=== PATIENT | female | born 1975 | race Asian ===

== ENCOUNTER 2017-07-15 15:24 | Inpatient (IN) | payer OTHER ==
[2017-07-15 15:46] VITALS: BMI 35.3
[2017-07-15] MEDS ORDERED: SODIUM CHLORIDE 1,000 ML IV STA (15:46)
--- NOTE | 2017-07-15 15:47 | PDOC ---
Rapid Medical Evaluation Time Seen by Provider: 07/15/17 15:42 Medical Evaluation: Allergies Allergy/AdvReac Type Severity Reaction Status Date / Time No Known Allergies Allergy Verified 08/06/15 14:38 07/15/17 15:42 I have performed a brief in person evaluation of this patient. The patient presents with chief complaint of : vaginal bleeding for 3 weeks history of fibroids, with dizzyness. 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 lmp 3 months ago, denies , using one pad an hour to half hour. history of blood transfusion in the past. Pertinent PE findings: 152/113 HR 100 pulse ox 100 I have ordered the following: urine preg labs, The patient will proceed to the ER for further evaluation.
[2017-07-15 16:08] LABS: BASOPHIL 1.1 % (0-2.0); EOSINOPHIL 2.6 % (0-4.5); MCHC 29.5 g/dl (32.0-36.0); MEAN CELL VOLUME 61.3 fl (80-96); MEAN PLT VOLUME 8.8 fl (7.5-11.1); NEUTROPHILS 62.3 % (42.8-82.8); PLATELET COUNT 297 K/MM3 (134-434); WHITE BLOOD COUNT 5.7 K/mm3 (4.0-10.0)
[2017-07-15 16:17] LABS: MCH 18.1 pg (25.7-33.7)
[2017-07-15 16:40] LABS: ALBUMIN 3.4 g/dl (3.4-5.0); ALK PHOS 72 U/L (45-117); ANION GAP 9 (8-16); BILIRUBIN,TOTAL 0.3 mg/dL (0.2-1.0); CALCIUM 8.5 mg/dL (8.5-10.1); CO2 27 mmol/L (21-32); CREATININE 0.7 mg/dL (0.55-1.02); GLUCOSE,RANDOM 95 mg/dL (74-106); SGOT/AST 13 U/L (15-37); SGPT/ALT 20 U/L (12-78); TOT PROT 7.2 g/dl (6.4-8.2)
--- NOTE | 2017-07-15 16:59 | PDOC ---
History of Present Illness - General Chief Complaint: Vaginal Bleeding Stated Complaint: VAGINAL BLEEDING, DIZZINESS Time Seen by Provider: 07/15/17 15:42 History Source: Patient - History of Present Illness Timing/Duration: reports: constant Past History - Past Medical History Allergies/Adverse Reactions: Allergies Allergy/AdvReac Type Severity Reaction Status Date / Time No Known Allergies Allergy Verified 07/15/17 15:43 Home Medications: Ambulatory Orders Ferrous Sulfate [Feosol] 325 mg PO DAILY #0 ud 08/07/15 Anemia: Yes Asthma: Yes Cancer: No Cardiac Disorders: No CVA: No COPD: No CHF: No Dementia: No Diabetes: No GI Disorders: No Disorders: No HTN: No Hypercholesterolemia: No Liver Disease: No Seizures: No Thyroid Disease: Yes - Surgical History Abdominal Surgery: No Appendectomy: No Cardiac Surgery: No Cholecystectomy: No Lung Surgery: No Neurologic Surgery: No Orthopedic Surgery: No - Suicide/Smoking/Psychosocial Hx Smoking Status: No Smoking History: Never smoked Have you smoked in the past 12 months: No Number of Cigarettes Smoked Daily: 0 Hx Alcohol Use: No Drug/Substance Use Hx: No Hx Substance Use Treatment: No Review of Systems - Review of Systems Constitutional: No: Chills, Fever ABD/GI: No: Nausea, Vomiting, Abdominal cramping *Physical Exam - Vital Signs Last Vital Signs Temp Pulse Resp BP Pulse Ox 98 F 106 H 17 152/113 100 07/15/17 15:43 07/15/17 15:43 07/15/17 15:43 07/15/17 15:43 07/15/17 15:43 - Physical Exam General Appearance: Yes: Appropriately Dressed. No: Apparent Distress HEENT: positive: Normal Voice Neck: positive: Supple Respiratory/Chest: negative: Respiratory Distress Gastrointestinal/Abdominal: positive: Soft. negative: Tender Integumentary: positive: Dry, Warm Neurologic: positive: Fully Oriented, Alert, Normal Mood/Affect ED Treatment Course - LABORATORY CBC & Chemistry Diagram: 07/15/17 16:04 07/15/17 16:04 - ADDITIONAL ORDERS Additional order review: 07/15/17 16:04 RBC 3.12 L MCV 61.3 L MCHC 29.5 L RDW 24.0 H D MPV 8.8 Neutrophils % 62.3 Lymphocytes % 26.7 Monocytes % 7.3 Eosinophils % 2.6 Basophils % 1.1 Medical Decision Making - Medical Decision Making 07/15/17 16:58 42-year-old female, history of fibroids, anemia status post transfusion in the past here with abnormal vaginal bleeding. Patient states she gets monthly periods and that she got her period 3 weeks ago, which usually lasts for 1 week , but for the past 3 weeks has continued to bleed on and off. States right now bleeding is mild. Now feeling weak, dizzy and short of breath. No syncope. No abdominal pain. 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 See exam Menorrhagia H/o fibroids and anemia w/ transfusions in past though only cysts on US today, no visualized fibroids Non-compliant w/ iron Mildly tachy but well breanne in ED Labs done at triage w/ HGB of 5! -Will admit and transfuse at this time 07/15/17 18:[address] Rosas and patient admitted to observation for blood transfusion *DC/Admit/Observation/Transfer Diagnosis at time of Disposition: Symptomatic anemia, Vaginal bleeding - Discharge Dispostion Condition at time of disposition: Fair Admit: Yes - Referrals - Patient Instructions - Post Discharge Activity
[2017-07-15 17:13] LABS: INR 1.08 (0.82-1.09); PROTHROMBIN TIME (PATIENT) 12.2 SEC (9.98-11.88)
[2017-07-15 18:16] LABS: URINE APPEARANCE SLCLOUDY; URINE BILIRUBIN NEGATIVE (NEGATIVE); URINE BLOOD 3+ (NEGATIVE); URINE COLOR YELLOW; URINE GLUCOSE (UA) NEGATIVE (NEGATIVE); URINE KETONE NEGATIVE (NEGATIVE); URINE NITRITE NEGATIVE (NEGATIVE); URINE UROBILINOGEN NEGATIVE mg/dL (0.2-1.0)
[2017-07-15 18:21] LABS: URINE PROTEIN 1+ (NEGATIVE)
[2017-07-15 20:48] LABS: URINE MUCUS FEW; URINE RBC 664 /hpf (0-3); URINE WBC 7 /hpf (3-5)
[2017-07-15 21:31] LABS: BASOPHIL 1.3 % (0-2.0); EOSINOPHIL 3.3 % (0-4.5); MCHC 28.9 g/dl (32.0-36.0); MEAN PLT VOLUME 8.8 fl (7.5-11.1); NEUTROPHILS 58.2 % (42.8-82.8); PLATELET COUNT 113 K/MM3 (134-434); RDW 23.4 % (11.6-15.6); WHITE BLOOD COUNT 4.9 K/mm3 (4.0-10.0)
[2017-07-15 21:35] LABS: MCH 17.9 pg (25.7-33.7)
[2017-07-15 21:38] LABS: HYPOCHROMIA 3+
[2017-07-15 21:39] LABS: ANISOCYTOSIS 3+; MACROCYTOSIS 1+; MICROCYTOSIS 2+; OVALOCYTE 2+
[2017-07-15 22:29] LABS: URINE LEUK ESTERASE Negative (NEGATIVE)
[2017-07-15] MEDS ORDERED: ACETAMINOPHEN 325 MG TABLET (FP) PO PRN (22:33)
[2017-07-16 08:33] LABS: MCH 20.8 pg (25.7-33.7); MCHC 31.5 g/dl (32.0-36.0); MEAN PLT VOLUME 8.7 fl (7.5-11.1); PLATELET COUNT 219 K/MM3 (134-434); RDW 27.1 % (11.6-15.6); WHITE BLOOD COUNT 5.5 K/mm3 (4.0-10.0)
--- NOTE | 2017-07-16 09:11 | HP ---
Admitting History and Physical - Primary Care Physician PCP: Amberly Escobar - Admission Chief Complaint: lightheadedess, weakness, vaginal bleeding History of Present Illness: long history of heavy periods, vaginal bleeding d+c in past x1 that woorked for her for 2 years recently she has had menses for 3 weeks with clots and continuos spotting to the point where she felt weak and lightheaded and short of breath. does not have a regular medication technician has one child History Source: Patient Limitations to Obtaining History: No Limitations - Past Medical History Reproductive: Yes: Fibroids ...LMP: 07/01/17 ...: No Heme/Onc: Yes: Anemia (this is her fourth time admitted for blood transfusions) - Smoking History Smoking history: Never smoked Have you smoked in the past 12 months: No Aproximately how many cigarettes per day: 0 - Alcohol/Substance Use Hx Alcohol Use: No - Social History ADL: Independent History of Recent Travel: No Home Medications - Allergies Allergies/Adverse Reactions: Allergies Allergy/AdvReac Type Severity Reaction Status Date / Time No Known Allergies Allergy Verified 07/15/17 15:43 - Home Medications Home Medications: Ambulatory Orders Ferrous Sulfate [Feosol] 325 mg PO DAILY #0 ud 08/07/15 Family Disease History - Family Disease History Family History: Unremarkable Review of Systems - Review of Systems Constitutional: reports: Lethargy, Weakness Eyes: reports: No Symptoms HENT: reports: No Symptoms Neck: reports: No Symptoms Cardiovascular: reports: No Symptoms Respiratory: reports: Exercise Intolerance Gastrointestinal: reports: No Symptoms Genitourinary: reports: Vaginal Bleeding Breasts: reports: No Symptoms Reported Musculoskeletal: reports: No Symptoms Integumentary: reports: No Symptoms Endocrine: reports: No Symptoms Hematology/Lymphatic: reports: No Symptoms Psychiatric: reports: No Symptoms Physical Examination Vital Signs: Vital Signs Temperature 97.7 F 07/15/17 19:44 Pulse Rate 87 07/15/17 19:44 Respiratory Rate 20 07/15/17 19:44 Blood Pressure 103/51 07/15/17 19:44 O2 Sat by Pulse Oximetry (%) 97 07/15/17 21:00 Constitutional: Yes: Well Nourished, No Distress, Obese Eyes: Yes: Conjunctiva Clear HENT: Yes: Atraumatic Neck: Yes: Supple, Trachea Midline Cardiovascular: Yes: Regular Rate and Rhythm Respiratory: Yes: CTA Bilaterally Gastrointestinal: Yes: Normal Bowel Sounds, Soft Musculoskeletal: Yes: WNL Extremities: Yes: WNL Edema: No Peripheral Pulses WNL: Yes Integumentary: Yes: WNL Neurological: Yes: WNL Labs: CBC, BMP 07/16/17 07:58 07/15/17 16:04 Abnormal Lab Results 07/15/17 07/15/17 07/15/17 16:04 16:04 16:04 RBC 3.12 L Hgb 5.7 L* D Hct 19.1 L D MCV 61.3 L MCH 18.1 L MCHC 29.5 L RDW 24.0 H D Plt Count PT with INR 12.20 H BUN 6 L D AST 13 L D Urine Protein Urine Blood Crossmatch 07/15/17 07/15/17 07/15/17 17:44 18:50 18:50 RBC Hgb Hct MCV MCH MCHC RDW Plt Count PT with INR BUN AST Urine Protein 1+ H Urine Blood 3+ H Crossmatch See Detail See Detail 07/15/17 07/16/17 21:24 07:58 RBC 2.12 L D 3.38 L D Hgb 3.8 L* D 7.0 L D Hct 13.2 L 22.3 L D MCV 62.0 L 66.0 L D MCH 17.9 L 20.8 L MCHC 28.9 L 31.5 L RDW 23.4 H 27.1 H Plt Count 113 L D PT with INR BUN AST Urine Protein Urine Blood Crossmatch Imaging - Results Other: Report Reviewed (endometrial thickening, no fibroids noted) Problem List - Problems (1) Symptomatic anemia Code(s): D64.9 - ANEMIA, UNSPECIFIED (2) Vaginal bleeding Code(s): N93.9 - ABNORMAL UTERINE AND VAGINAL BLEEDING, UNSPECIFIED Assessment/Plan in view of continous bleeding transfuse additional 1 unit PBC privacy analyst evaluation for d+c, hysterectomy...in future
[2017-07-16] MEDS ORDERED: MIDAZOLAM HCL 2 MG/2 ML SINGLE DOSE VIAL ONE (15:49)
[2017-07-16] MEDS ORDERED: PROPOFOL 20 ML ONE (15:49)
[2017-07-16] MEDS ORDERED: DEXAMETHASONE SOD PHOSPHATE 4 MG/1 ML VIAL ONE (15:50)
[2017-07-16] MEDS ORDERED: LIDOCAINE HCL/PF 2% SDV 5ML VIAL ONE (15:50)
[2017-07-16] MEDS: FERROUS SO4 325 MG TABLET (FP) PO SCH (19:09)
[2017-07-17 08:18] LABS: BASOPHIL 0.3 % (0-2.0); EOSINOPHIL 0.1 % (0-4.5); MCH 21.8 pg (25.7-33.7); MCHC 31.8 g/dl (32.0-36.0); MEAN CELL VOLUME 68.4 fl (80-96); MEAN PLT VOLUME 8.6 fl (7.5-11.1); NEUTROPHILS 78.5 % (42.8-82.8); PLATELET COUNT 228 K/MM3 (134-434); RDW 26.5 % (11.6-15.6); WHITE BLOOD COUNT 9.2 K/mm3 (4.0-10.0)
--- NOTE | 2017-07-17 08:54 | DS ---
Physical Examination Vital Signs: Vital Signs Temperature 98 F 07/17/17 06:22 Pulse Rate 76 07/17/17 06:22 Respiratory Rate 20 07/17/17 06:22 Blood Pressure 115/69 07/17/17 06:22 O2 Sat by Pulse Oximetry (%) 96 07/17/17 01:00 Constitutional: Yes: Well Nourished, No Distress Eyes: Yes: Conjunctiva Clear HENT: Yes: Atraumatic Neck: Yes: Trachea Midline Cardiovascular: Yes: Regular Rate and Rhythm Respiratory: Yes: CTA Bilaterally Gastrointestinal: Yes: Normal Bowel Sounds, Soft. No: Tenderness, Tenderness, Rebound Musculoskeletal: Yes: WNL Edema: No Labs: CBC, BMP 07/17/17 07:25 07/15/17 16:04 Discharge Summary Reason For Visit: SECONDARY ANEMIA Current Active Problems Symptomatic anemia (Acute) Vaginal bleeding (Acute) Hospital Course: admitted for three weeks of vaginal bleeding and symptomatic anemia transfused 3 untis prbc seen by rn gyn and underwent d+c feels much better,h/h is up medically stable to tn home with close f/up Condition: Fair - Instructions Diet, Activity, Other Instructions: f/up with dr foreman next week dr Bee [phone] Disposition: HOME - Home Medications Comprehensive Discharge Medication List: Ambulatory Orders Ferrous Sulfate [Feosol] 325 mg PO DAILY #0 ud 08/07/15
[2017-07-17] MEDS: FERROUS SO4 325 MG TABLET (FP) PO SCH (09:25)
--- NOTE | 2017-07-17 10:06 | PN ---
Progress Note (short form) - Note Progress Note: no c/o no vaginal bleeding CBC, BMP 07/17/17 07:25 07/15/17 16:04 Last Vital Signs Temp Pulse Resp BP Pulse Ox 98 F 76 20 115/69 96 07/17/17 06:22 07/17/17 06:22 07/17/17 06:22 07/17/17 06:22 07/17/17 01:00 abdomen soft, non tender small dark vaginal bleeding no active vaginal bleeding importance follow up after path report discussed
[2017-07-17 11:44] VITALS: BP 120/71; PULSE 97; TEMP 98
--- NOTE | 2017-07-17 20:09 | OP ---
DATE OF OPERATION: 07/16/2017 PREOPERATIVE DIAGNOSIS: Menometrorrhagia. Severe anemia. POSTOPERATIVE DIAGNOSIS: Menometrorrhagia. Severe anemia. Rule out malignancy. Pending pathology. PROCEDURE: Dilation and curettage. SURGEON: Phill Bee M.D. ANESTHESIA: General. ANESTHESIOLOGIST: Thanh Brown M.D. ESTIMATED BLOOD LOSS: 50 mL. DESCRIPTION OF PROCEDURE: The patient was taken to operating room and adequate general anesthesia in dorsal lithotomy position, examination under anesthesia revealed external genitalia to be normal, vagina with some dark blood. Cervix was closed, no gross lesion. Uterus was enlarged, approximately 10 to 12 weeks' size. Adnexa no masses were palpable. Then with the weighted speculum in the vagina, anterior lip of the cervix was grasped with single-toothed tenaculum, uterine cavity was sounded to 10 cm. Then cervix was gradually dilated with Hegar dilator, and then uterine cavity was curetted. A large amount of tissue was obtained. Bleeding stopped, and patient tolerated procedure well and left the OR in good condition. PHILL BEE M.D. [id number]
--- NOTE | 2017-07-18 11:56 | CONS ---
DATE OF CONSULTATION: 07/16/2017 REASON FOR CONSULTATION: For heavy vaginal bleeding and and severe anemia. HISTORY OF PRESENT ILLNESS: Patient is a 42-year-old female, 1, para 1, with 1 previous , complaining of prolonged, heavy vaginal bleeding for the past 2 years, but now, she has been bleeding for almost 3 weeks and passing large clots and has lower abdominal discomfort. On admission, her hemoglobin was 5.7, hematocrit of 19, of which, hemoglobin dropped after admission to 3.8 and hematocrit to 13.2. Patient currently is receiving transfusion, and this morning, the last hemoglobin was 7 and hematocrit was 23. PAST MEDICAL HISTORY: She has had history of fibroid and has had previous dilatation and curettage. Her sonogram had shown an enlarged uterus approximately 12.3 cm in size, and endometrial strip was 1.45 cm. Left ovary appeared to be normal. Right ovary had multiple simple cysts, 3 x 3 cm, with total ovarian size of 5.8 x 2.2 cm. PHYSICAL EXAMINATION: General: Patient on examination is alert and oriented. Vital signs: Were stable. Her blood pressure was 103/61 and her pulse was 86 and temperature was 98.1, respirations 18. Abdomen: Soft, nontender. No masses were palpable. Transverse previous skin scar was noted. Examination of the vagina showed moderate amount of blood bleeding in the vagina. Os was closed with bleeding from the os. No gross cervical lesion was seen. Uterus was enlarged, retroverted, and tender. Adnexa, no masses were palpable. IMPRESSION: Menometrorrhagia, severe anemia, possible fibroid uterus with adenomyosis. RECOMMENDATIONS: In view of the continuous heavy bleeding and thickened endometrium, I advised dilatation and curettage. Risk of the procedure was explained to the patient. Patient agreed to have a dilatation and curettage today. She ate at 8:00 a.m. this morning. We will do the dilatation and curettage later on this afternoon. Continue blood transfusion. Importance of followup in the office for further evaluation was discussed with the patient. Jaleesa [id number]
--- NOTE | 2017-07-18 15:31 | PATH ---
Surgical Pathology Report Patient Name: PORTER PABLO Med. Rec. #: [id number] /Age/Gender: 1975 (Age: 42) / F Account: [id number] Location: [facility] MED/SURG Taken: 07/16/2017 Received: 07/17/2017 Reported: 07/18/2017 Physicians: Phill Bee M.D. Specimen(s) Received ENDOMETRIAL CURETTINGS Clinical History Vaginal bleeding, anemia Final Diagnosis ENDOMETRIAL CURETTINGS, DILATATION AND CURETTAGE: COMPLEX HYPERPLASIA WITH ATYPIA. SCANT BENIGN EXOCERVICAL TISSUE. Electronically Signed Carmen Christensen M.D. Gross Description Received in formalin labeled "endometrial curetting," is a 6.0 x 5.7 x 0.7 cm aggregate of gamez-brown soft tissue fragments admixed with blood clot. The formalin is filtered and the specimen is entirely submitted in 8 cassettes. 07/17/2017 [facility]07/17/2017
== END 2017-07-17 10:05 | disposition home or self-care (01) | DRG 952 ==
LOC: JER 15:24 → JERBED 18:06 → J7W 21:46 → OBSVTOIN 07-16 13:00
PROVIDERS: ADMIT Internal Medicine; ATTEND Internal Medicine
PROC: 30233N1 Transfusion of Nonautologous Red Blood Cells into Peripheral Vein, Percutaneous Approach (ICD-10-PCS; 2017-07-15)
PROC: 0UDB7ZX Extraction of Endometrium, Via Natural or Artificial Opening, Diagnostic (ICD-10-PCS; principal; 2017-07-16 16:00)
DX: D64.9 Anemia, unspecified (principal); N92.0 Excessive and frequent menstruation with regular cycle; D25.9 Leiomyoma of uterus, unspecified; N93.9 Abnormal uterine and vaginal bleeding, unspecified; N92.1 Excessive and frequent menstruation with irregular cycle; E66.9 Obesity, unspecified; R93.8 Abnormal findings on diagnostic imaging of other specified body structures; Z68.35 Body mass index [BMI] 35.0-35.9, adult; R00.0 Tachycardia, unspecified
CPT/HCPCS: 36415; 36430; 71010-TC; 76830-TC; 80053; 81003; 81015; 84703; 85025; 85027; 85610; 86850; 86900; 86901; 86922; 88305-TC; 99285-25; G0378; P9038; P9058

== ENCOUNTER 2018-07-07 14:16 | Emergency (ER) | payer OTHER ==
[2018-07-07] MEDS ORDERED: SODIUM CHLORIDE 1,000 ML IV STA (14:31)
[2018-07-07 14:32] VITALS: BP 97/68; PULSE 91; TEMP 98.4; BMI 34.7
--- NOTE | 2018-07-07 14:34 | PDOC ---
Rapid Medical Evaluation Chief Complaint: Weakness Time Seen by Provider: 07/07/18 14:29 Medical Evaluation: Allergies Allergy/AdvReac Type Severity Reaction Status Date / Time No Known Allergies Allergy Verified 07/07/18 14:28 07/07/18 14:31 Pt c/o: generalized weakness, lower abd cramping, menses x 9 days, stopped today , hx anemia/ transfusion, hx fibroids Pt on brief exam: borderline BP 97/ 68, pale conjunctiva pt ordered for: labs, urine, u/s fluids pt to proceed to the ED Discharge Disposition - Diagnosis Weakness - Referrals Referrals: Amberly Escobar MD [Primary Care Provider] - - Patient Instructions - Post Discharge Activity
[2018-07-07 15:00] LABS: EOS % 1.5 % (0-4.5); HEMATOCRIT 23.5 % (32.4-45.2); HEMOGLOBIN 7.1 GM/dL (10.7-15.3); MCHC 30.2 g/dl (32.0-36.0); MEAN CELL VOLUME 56.2 fl (80-96); MEAN PLT VOLUME 8.7 fl (7.5-11.1); MONO % 6.8 % (3.8-10.2); NEUT % 69.7 % (42.8-82.8); PLATELET COUNT 337 K/MM3 (134-434); RBC 4.18 M/mm3 (3.60-5.2); RDW 21.9 % (11.6-15.6); WHITE BLOOD COUNT 6.1 K/mm3 (4.0-10.0)
[2018-07-07 15:08] LABS: URINE APPEARANCE SLCLOUDY; URINE BILIRUBIN NEGATIVE (<2.0 mg/dL); URINE COLOR LTYELLOW; URINE GLUCOSE (UA) NEGATIVE (NEGATIVE); URINE KETONE NEGATIVE (NEGATIVE); URINE LEUK ESTERASE 3+ (NEGATIVE); URINE NITRITE NEGATIVE (NEGATIVE); URINE PROTEIN 1+ (NEGATIVE); URINE UROBILINOGEN NEGATIVE mg/dL (0.2-1.0)
[2018-07-07 15:21] LABS: ALBUMIN 3.2 g/dl (3.4-5.0); ALK PHOS 89 U/L (45-117); ANION GAP 8 MMOL/L (8-16); BILIRUBIN,TOTAL 0.3 mg/dL (0.2-1); BLOOD UREA NITROGEN 7 mg/dL (7-18); CALCIUM 8.4 mg/dL (8.5-10.1); CHLORIDE 103 mmol/L (98-107); CO2 26 mmol/L (21-32); CREATININE 0.6 mg/dL (0.55-1.3); GLUCOSE,RANDOM 84 mg/dL (74-106); POTASSIUM 4.1 mmol/L (3.5-5.1); SGOT/AST 15 U/L (15-37); SGPT/ALT 23 U/L (13-61); SODIUM 138 mmol/L (136-145); TOT PROT 7.2 g/dl (6.4-8.2)
[2018-07-07 15:24] LABS: HCG,QUALITATIVE URINE Negative
[2018-07-07 15:25] LABS: EPI CELLS RARE /HPF (FEW); URINE BACTERIA RARE /hpf (NONE SEEN); URINE MUCUS RARE
--- NOTE | 2018-07-07 16:52 | PDOC ---
History of Present Illness - General Chief Complaint: Weakness Stated Complaint: Weakness Time Seen by Provider: 07/07/18 14:29 History Source: Patient Exam Limitations: No Limitations - History of Present Illness Initial Comments: 43 yo F with a hx of fibroids and anemia (s/p multiple transfusions in the past due to heavy menses) presents to the emergency department with weakness and lightheadedness. per the patient, she states she has had 8-9 days of heavy menses with the heaviest portion this past Saturday and Saturday where she was changing her pad every hour. Her last bleeding episode was yesterday and has not had a bleeding event today. She presents to the emergency department primarily to assess her hemoglobin levels. She had one episode of non- hematemesis today. Denies the following: fever, chills, visual changes, FND, chest pain, SOB at rest, abdominal pain, dysuria, hematuria, diarrhea, leg pain/ swelling, and hematochezia/melena. Pmhx: Refer to above Shx: DNC 1 year ago Meds: iron Allergies: NKDA Social: Denies tobacco, alcohol, and substance abuse. Past History - Past Medical History Allergies/Adverse Reactions: Allergies Allergy/AdvReac Type Severity Reaction Status Date / Time No Known Allergies Allergy Verified 07/07/18 14:28 Home Medications: Ambulatory Orders Nitrofurantoin Monohyd/M-Cryst [Macrobid -] 100 mg PO BID #10 capsule 07/07/18 Anemia: Yes Asthma: Yes Cancer: No Cardiac Disorders: No CVA: No COPD: No CHF: No Dementia: No Diabetes: No GI Disorders: No Disorders: No HTN: No Hypercholesterolemia: No Liver Disease: No Seizures: No Thyroid Disease: Yes - Surgical History Abdominal Surgery: No Appendectomy: No Cardiac Surgery: No Cholecystectomy: No Lung Surgery: No Neurologic Surgery: No Orthopedic Surgery: No - Immunization History Immunization Up to Date: Yes - Suicide/Smoking/Psychosocial Hx Smoking Status: No Smoking History: Never smoked Have you smoked in the past 12 months: No Number of Cigarettes Smoked Daily: 0 Information on smoking cessation initiated: No Hx Alcohol Use: No Drug/Substance Use Hx: No Substance Use Type: None Hx Substance Use Treatment: No Review of Systems - Review of Systems Able to Perform ROS?: Yes Is the patient limited Mohawk proficient: No Constitutional: Yes: Weakness. No: Chills, Diaphoresis, Fever HEENTM: No: Recent change in vision, Nose Pain, Throat Pain, Throat Swelling, Mouth Pain Respiratory: No: Cough, Shortness of Breath, Hemoptysis Cardiac (ROS): Yes: Lightheadedness. No: Chest Pain, Palpitations, Syncope, Chest Tightness ABD/GI: No: Constipated, Diarrhea, Nausea, Poor Fluid Intake, Rectal Bleeding, Vomiting, Tarry Stools : No: Burning, Dysuria, Frequency, Hematuria Musculoskeletal: No: Back Pain Integumentary: Yes: Pallor. No: Lumps, Rash Neurological: Yes: Weakness. No: Headache, Numbness, Tingling, Tremors, Unsteady Gait, Ataxia, Dizziness Psychiatric: No: Stressors Endocrine: No: Unexplained Weight Gain Hematologic/Lymphatic: Yes: Anemia *Physical Exam - Vital Signs Last Vital Signs Temp Pulse Resp BP Pulse Ox 98.4 F 91 H 16 97/68 100 07/07/18 14:28 07/07/18 14:28 07/07/18 14:28 07/07/18 14:28 07/07/18 14:28 - Physical Exam General Appearance: Yes: Nourished, Appropriately Dressed, Other (pale on appearance). No: Apparent Distress HEENT: positive: EOMI, TRUNG, Normal Voice, Symmetrical, TMs Normal. negative: Scleral Icterus (R), Scleral Icterus (L), TM Bulging, TM Dull, TM Erythema, Excessive drooling Neck: positive: Trachea midline. negative: Tender, Decreased range of motion, Lymphadenopathy (R), Lymphadenopathy (L) Respiratory/Chest: positive: Lungs Clear, Normal Breath Sounds. negative: Chest Tender, Respiratory Distress, Accessory Muscle Use, Rapid RR, Decreased Breath Sounds, Crackles, Rales, Rhonchi, Stridor, Wheezing Cardiovascular: positive: Regular Rhythm, Regular Rate, S1, S2. negative: Systolic Murmur Female Pelvic Exam: positive: normal external exam, cervical os closed, normal adnexa. negative: CMT, discharge, lesions, adnexal tenderness, vaginal bleeding Gastrointestinal/Abdominal: positive: Normal Bowel Sounds, Flat, Soft. negative : Tender, Organomegaly, Pulsatile Mass, Protuberent, Distended Lymphatic: negative: Adenopathy Musculoskeletal: positive: Normal Inspection. negative: CVA Tenderness Extremity: positive: Normal Capillary Refill, Normal Inspection, Normal Range of Motion. negative: Tender Integumentary: positive: Dry, Warm, Pale. negative: Jaundice, Petechiae, Rash, Bruising Neurologic: positive: pit clerk II-XII NML intact, Fully Oriented, Alert, Normal Mood/ Affect, Normal Response, Motor Strength 5/5. negative: Facial Droop, Sensory Deficit ED Treatment Course - LABORATORY CBC & Chemistry Diagram: 07/07/18 14:52 07/07/18 14:52 - ADDITIONAL ORDERS Additional order review: Laboratory Results 07/07/18 07/07/18 14:52 14:52 Sodium 138 Potassium 4.1 Chloride 103 Carbon Dioxide 26 Anion Gap 8 BUN 7 Creatinine 0.6 Creat Clearance w eGFR > 60 Random Glucose 84 Calcium 8.4 L Total Bilirubin 0.3 AST 15 ALT 23 Alkaline Phosphatase 89 Total Protein 7.2 Albumin 3.2 L Urine Color Ltyellow Urine Appearance Slcloudy Urine pH 7.0 Ur Specific [place] 1.015 Urine Protein 1+ H Urine Glucose (UA) Negative Urine Ketones Negative Urine Blood 2+ H Urine Nitrite Negative Urine Bilirubin Negative Urine Urobilinogen Negative Ur Leukocyte Esterase 3+ H Urine WBC (Auto) 160 Urine RBC (Auto) 62 Ur Epithelial Cells Rare Urine Bacteria Rare Urine Mucus Rare Urine HCG, Qual Negative 07/07/18 14:52 RBC 4.18 MCV 56.2 L MCHC 30.2 L RDW 21.9 H MPV 8.7 Neutrophils % 69.7 Lymphocytes % 21.0 D Monocytes % 6.8 Eosinophils % 1.5 D Basophils % 1.0 D - Medications Given in the ED: ED Medications Discontinued Medications Generic Name Dose Route Start Last Admin Trade Name Freq PRN Reason Stop Dose Admin Sodium Chloride 1,000 mls @ 1,000 mls/hr 07/07/18 14:31 07/07/18 14:53 Normal Saline - IV 07/07/18 15:30 1,000 mls/hr ASDIR STA Administration Medical Decision Making - Medical Decision Making 43 yo F with a hx of fibroids and anemia (s/p multiple transfusions in the past due to heavy menses) presents to the emergency department with weakness and lightheadedness. Initial vitals: Initial Vital Signs Temp Pulse Resp BP Pulse Ox 98.4 F 91 H 16 97/68 100 07/07/18 14:28 07/07/18 14:28 07/07/18 14:28 07/07/18 14:28 07/07/18 14:28 Work up: pale appearance likely secondary to anemia due to hx of previous anemia and hx of heavy bleeding over last 8-9 days. labs to be ordered: cbc (assess hemoglobin and hematocrit status as well if infectious etiology present), cmp, UA (assess urinary tract infection) and test. type and screen as well. Laboratory Tests 07/07/18 07/07/18 07/07/18 14:52 14:52 14:52 WBC 6.1 RBC 4.18 Hgb 7.1 L Hct 23.5 L MCV 56.2 L MCH 17.0 L D MCHC 30.2 L RDW 21.9 H Plt Count 337 D MPV 8.7 Absolute Neuts (auto) 4.3 Neutrophils % 69.7 Lymphocytes % 21.0 D Monocytes % 6.8 Eosinophils % 1.5 D Basophils % 1.0 D Nucleated RBC % 0 Hypochromia 3+ Platelet Estimate Adequate Platelet Comment No clumping noted Anisocytosis 2+ Microcytosis 2+ Macrocytosis 1+ Sodium 138 Potassium 4.1 Chloride 103 Carbon Dioxide 26 Anion Gap 8 BUN 7 Creatinine 0.6 Creat Clearance w eGFR > 60 Random Glucose 84 Calcium 8.4 L Total Bilirubin 0.3 AST 15 ALT 23 Alkaline Phosphatase 89 Total Protein 7.2 Albumin 3.2 L Urine Color Ltyellow Urine Appearance Slcloudy Urine pH 7.0 Ur Specific [place] 1.015 Urine Protein 1+ H Urine Glucose (UA) Negative Urine Ketones Negative Urine Blood 2+ H Urine Nitrite Negative Urine Bilirubin Negative Urine Urobilinogen Negative Ur Leukocyte Esterase 3+ H Urine WBC (Auto) 160 Urine RBC (Auto) 62 Ur Epithelial Cells Rare Urine Bacteria Rare Urine Mucus Rare Urine HCG, Qual Negative Blood Type Antibody Screen 07/07/18 14:52 WBC RBC Hgb Hct MCV MCH MCHC RDW Plt Count MPV Absolute Neuts (auto) Neutrophils % Lymphocytes % Monocytes % Eosinophils % Basophils % Nucleated RBC % Hypochromia Platelet Estimate Platelet Comment Anisocytosis Microcytosis Macrocytosis Sodium Potassium Chloride Carbon Dioxide Anion Gap BUN Creatinine Creat Clearance w eGFR Random Glucose Calcium Total Bilirubin AST ALT Alkaline Phosphatase Total Protein Albumin Urine Color Urine Appearance Urine pH Ur Specific [place] Urine Protein Urine Glucose (UA) Urine Ketones Urine Blood Urine Nitrite Urine Bilirubin Urine Urobilinogen Ur Leukocyte Esterase Urine WBC (Auto) Urine RBC (Auto) Ur Epithelial Cells Urine Bacteria Urine Mucus Urine HCG, Qual Blood Type O POSITIVE Antibody Screen Negative hemoglobin reported at 7.1. This result was relayed to the patient. she denied the transfusion because of improvement of status "I feel better after the fluids " and because she was not actively bleeding. She states if she were still bleeding she would consider the transfusion. UA resulted in 3+ leuk est consistent with a UTI. She was given an outpatient prescription for macrobid to her pharmacy. Patient was reassessed. She stated she wanted to be discharged and feels safe to go home. We went over her lab work and i answered all questions. She understands the need to take the antibiotics and to follow up with her PMD within 48-72 hours after discharge. She was given return precautions. She understood and agreed to the plan. a referral was given for OBGYN for further evaluation of uterine bleeding. Dispo: Discharge *DC/Admit/Observation/Transfer Diagnosis at time of Disposition: Weakness Anemia Qualifiers: Anemia type: unspecified type Qualified Code(s): D64.9 - Anemia, unspecified - Discharge Dispostion Disposition: HOME Decision to Admit order: No - Prescriptions Prescriptions: Nitrofurantoin Monohyd/M-Cryst [Macrobid -] 100 mg PO BID #10 capsule - Referrals Referrals: Amberly Escobar MD [Primary Care Provider] - Phill Bee MD [Staff Physician] - Francisco Mcdaniel MD [Staff Physician] - - Patient Instructions Printed Discharge Instructions: DI for Vaginal Bleeding Additional Instructions: You were seen in the emergency department for the evaluation of your vaginal bleeding. Your labs indicate your hemoglobin is 7.1. You elected not to receive a transfusion. We prescribed you an antibiotic to your pharmacy. Please take it as directed. Please return to the emergency department if you have worsening pain or new concerning symptoms such as chest pain, shortness of breath, and loss of consciousness. Please follow up with the OBGYN physician we referred you to within 48-72 hours after discharge. - Post Discharge Activity Forms/Work/School Notes: Back to Work
--- NOTE | 2018-07-07 17:20 | PDOC ---
History of Present Illness - General Chief Complaint: Weakness Stated Complaint: Weakness Time Seen by Provider: 07/07/18 14:29 History Source: Patient Exam Limitations: No Limitations Past History - Past Medical History Allergies/Adverse Reactions: Allergies Allergy/AdvReac Type Severity Reaction Status Date / Time No Known Allergies Allergy Verified 07/07/18 14:28 Home Medications: Ambulatory Orders Ferrous Sulfate [Feosol] 325 mg PO DAILY #0 ud 08/07/15 Anemia: Yes Asthma: Yes Cancer: No Cardiac Disorders: No CVA: No COPD: No CHF: No Dementia: No Diabetes: No GI Disorders: No Disorders: No HTN: No Hypercholesterolemia: No Liver Disease: No Seizures: No Thyroid Disease: Yes - Surgical History Abdominal Surgery: No Appendectomy: No Cardiac Surgery: No Cholecystectomy: No Lung Surgery: No Neurologic Surgery: No Orthopedic Surgery: No - Immunization History Immunization Up to Date: Yes - Suicide/Smoking/Psychosocial Hx Smoking Status: No Smoking History: Never smoked Have you smoked in the past 12 months: No Number of Cigarettes Smoked Daily: 0 Information on smoking cessation initiated: No Hx Alcohol Use: No Drug/Substance Use Hx: No Substance Use Type: None Hx Substance Use Treatment: No *Physical Exam - Vital Signs Last Vital Signs Temp Pulse Resp BP Pulse Ox 98.4 F 91 H 16 97/68 100 07/07/18 14:28 07/07/18 14:28 07/07/18 14:28 07/07/18 14:28 07/07/18 14:28 ED Treatment Course - LABORATORY CBC & Chemistry Diagram: 07/07/18 14:52 07/07/18 14:52 - ADDITIONAL ORDERS Additional order review: Laboratory Results 07/07/18 07/07/18 14:52 14:52 Sodium 138 Potassium 4.1 Chloride 103 Carbon Dioxide 26 Anion Gap 8 BUN 7 Creatinine 0.6 Creat Clearance w eGFR > 60 Random Glucose 84 Calcium 8.4 L Total Bilirubin 0.3 AST 15 ALT 23 Alkaline Phosphatase 89 Total Protein 7.2 Albumin 3.2 L Urine Color Ltyellow Urine Appearance Slcloudy Urine pH 7.0 Ur Specific [place] 1.015 Urine Protein 1+ H Urine Glucose (UA) Negative Urine Ketones Negative Urine Blood 2+ H Urine Nitrite Negative Urine Bilirubin Negative Urine Urobilinogen Negative Ur Leukocyte Esterase 3+ H Urine WBC (Auto) 160 Urine RBC (Auto) 62 Ur Epithelial Cells Rare Urine Bacteria Rare Urine Mucus Rare Urine HCG, Qual Negative 07/07/18 14:52 RBC 4.18 MCV 56.2 L MCHC 30.2 L RDW 21.9 H MPV 8.7 Neutrophils % 69.7 Lymphocytes % 21.0 D Monocytes % 6.8 Eosinophils % 1.5 D Basophils % 1.0 D - Medications Given in the ED: ED Medications Discontinued Medications Generic Name Dose Route Start Last Admin Trade Name Freq PRN Reason Stop Dose Admin Sodium Chloride 1,000 mls @ 1,000 mls/hr 07/07/18 14:31 07/07/18 14:53 Normal Saline - IV 07/07/18 15:30 1,000 mls/hr ASDIR STA Administration *DC/Admit/Observation/Transfer Diagnosis at time of Disposition: Weakness - Discharge Dispostion Disposition: HOME - Referrals Referrals: Amberly Escobar MD [Primary Care Provider] - Phill Bee MD [Staff Physician] - Francisco Mcdaniel MD [Staff Physician] - - Patient Instructions Printed Discharge Instructions: DI for Vaginal Bleeding Additional Instructions: You were seen in the emergency department for the evaluation of your vaginal bleeding. - Post Discharge Activity
--- NOTE | 2018-07-07 17:29 | PDOC ---
Attending Attestation - Resident Resident Name: Sander Colvin - ED Attending Attestation I have performed the following: I have examined & evaluated the patient, The case was reviewed & discussed with the resident, I agree w/resident's findings & plan, Exceptions are as noted - HPI HPI: 07/07/18 17:26 The patient is a 43 year old female, with a significant past medical history of uterine fibroids, anemia, and heavy menses (occasionally needing d and c), who presents to the emergency department with weakness and lightheadedness. Pt reports a history of heavy menstrual cycles, and she just completed a 9 day cycle with heavy bleeding. Pt states that her bleeding has stopped, but she is concerned that she is anemic now. Patient notes that she has needed blood transfusions in the past. She denies recent fevers, chills, headache or dizziness. She denies recent diarrhea or constipation. She denies recent dysuria, frequency, urgency or hematuria. She denies recent chest pain or shortness of breath. Allergies: NKA Past surgical history: D and C. Social history: Nonsmoker. Denies EtOH use and recreational drug use. Primary Care Physician: Dr. Escobar - Physicial Exam PE: 07/07/18 17:28 "GENERAL: Awake, alert, and fully oriented, in no acute distress. HEAD: No signs of trauma EYES: PERRLA, EOMI, sclera anicteric, conjunctiva clear ENT: Auricles normal inspection, hearing grossly normal, nares patent, oropharynx clear without exudates. Moist mucosa NECK: Nontender, no stepoffs, Normal ROM, supple, no lymphadenopathy, JVD, or masses LUNGS: Breath sounds equal, clear to auscultation bilaterally. No wheezes, and no crackles HEART: Regular rate and rhythm, normal S1 and S2, no murmurs, rubs or gallops ABDOMEN: Soft, nontender, normoactive bowel sounds. No guarding, no rebound. No masses EXTREMITIES: Normal range of motion, no edema. No clubbing or cyanosis. No cords, erythema, or tenderness NEUROLOGICAL: Cranial nerves II through XII intact. 5/5 strength and sensation in all extremities, Normal speech, normal gait, normal cerebellar function SKIN: Warm, Dry, normal turgor, no rashes or lesions noted. : No active bleeding, os closed, no adnexal tenderness or masses - Medical Decision Making 07/07/18 17:28 43 F with lightheadedness and weakness. Will check for anemia given h/o heavy menstrual bleeding. Pt with no F/C to suggest infectious process but will check UA. Pt denies CP/SOB, making ACS or PE unlikely. - Labs, UA, UPT 07/07/18 17:29 Pt's Hb is 7.1. Discussed with pt option of transfusion. However, pt declining, stating that she feels much better after 1L NS. Pt with stable vitals. UA consistent with UTI Will start on Macrobid Pt is well appearing, with normal vitals. Clinically stable for DC at this time. I discussed the physical exam findings, ancillary test results and final diagnoses with the patient. I answered all of the patient's questions. The patient was satisfied with the care received and felt comfortable with the discharge plan and treatment plan. The patient agrees to follow up with the primary care physician within 24-72 hours.
[2018-07-07 18:14] LABS: ANISOCYTOSIS 2+; MACROCYTOSIS 1+; PLATELET ESTIMATE ADEQUATE
== END 2018-07-07 18:00 | disposition home or self-care (01) ==
LOC: JER 14:16
PROC: 3E0337Z Introduction of Electrolytic and Water Balance Substance into Peripheral Vein, Percutaneous Approach (ICD-10-PCS; principal; 2018-07-07)
DX: D64.9 Anemia, unspecified (principal); N39.0 Urinary tract infection, site not specified; Z87.42 Personal history of other diseases of the female genital tract; Z86.2 Personal history of diseases of the blood and blood-forming organs and certain disorders involving the immune mechanism
CPT/HCPCS: 36415; 80053; 81003; 81015; 84703; 85025; 86850; 86900; 86901; 87086; 87491; 87591; 87661; 99283-25; J7030

== ENCOUNTER 2019-05-11 16:43 | Inpatient (IN) | payer OTHER ==
--- NOTE | 2019-05-11 16:49 | PDOC ---
Rapid Medical Evaluation Time Seen by Provider: 05/11/19 16:44 Medical Evaluation: Allergies Allergy/AdvReac Type Severity Reaction Status Date / Time No Known Allergies Allergy Verified 07/07/18 14:28 05/11/19 16:44 CC: "I am weak and SOB." PE: BP-96/63. HR- 100. MM pallor present. Lungs CTAB Orders: anemia w/u Patient to proceed to ED for evaluation. Discharge Disposition - Diagnosis Symptomatic anemia - Referrals - Patient Instructions - Post Discharge Activity
[2019-05-11 17:16] LABS: BASO % 1.2 % (0-2.0); EOS % 1.7 % (0-4.5); HEMATOCRIT 15.1 % (32.4-45.2); LYMPH % 16.7 % (8-40); MCHC 28.2 g/dl (32.0-36.0); MEAN CELL VOLUME 54.3 fl (80-96); MEAN PLT VOLUME 8.4 fl (7.5-11.1); MONO % 8.1 % (3.8-10.2); NEUT % 72.3 % (42.8-82.8); PLATELET COUNT 258 K/MM3 (134-434); RBC 2.78 M/mm3 (3.60-5.2); WHITE BLOOD COUNT 7.1 K/mm3 (4.0-10.0)
[2019-05-11 17:19] LABS: MCH 15.3 pg (25.7-33.7)
[2019-05-11 17:21] LABS: HEMOGLOBIN 4.3 GM/dL (10.7-15.3)
--- NOTE | 2019-05-11 17:27 | PDOC ---
History of Present Illness - General Chief Complaint: Blood Transfusion Stated Complaint: TO BE SEEN Time Seen by Provider: 05/11/19 16:44 History Source: Patient Exam Limitations: No Limitations - History of Present Illness Initial Comments: 05/11/19 17:50 Frank Triana is a 43yF w PMHx fibroids, vaginal bleeding, anemia presenting w vaginal bleeding. Has been having gross vaginal bleeding w blood clots for last 10d coinciding w period. Associated headache, dizziness, SOB, intermittent L sided chest pain, palpitations, suprapubic pain worsened over last 3d. Has been admitted in past several times for anemia requiring transfusion d/t heavy menopause bleeding Denies fever, urinary changes, diarrhea/constipation. Pt does not have OBVIKN Past History - Past Medical History Allergies/Adverse Reactions: Allergies Allergy/AdvReac Type Severity Reaction Status Date / Time No Known Allergies Allergy Verified 05/11/19 16:45 Home Medications: Ambulatory Orders Nitrofurantoin Monohyd/M-Cryst [Macrobid -] 100 mg PO BID #10 capsule 07/07/18 Anemia: Yes Asthma: Yes Cancer: No Cardiac Disorders: No CVA: No COPD: No CHF: No Dementia: No Diabetes: No GI Disorders: No Disorders: No HTN: No Hypercholesterolemia: No Liver Disease: No Seizures: No Thyroid Disease: Yes - Surgical History Abdominal Surgery: No Appendectomy: No Cardiac Surgery: No Cholecystectomy: No Lung Surgery: No Neurologic Surgery: No Orthopedic Surgery: No - Immunization History Immunization Up to Date: Yes - Psycho Social/Smoking Cessation Hx Smoking Status: No Smoking History: Never smoked Have you smoked in the past 12 months: No Number of Cigarettes Smoked Daily: 0 Information on smoking cessation initiated: No Hx Alcohol Use: No Drug/Substance Use Hx: No Substance Use Type: None Hx Substance Use Treatment: No Review of Systems - Review of Systems Constitutional: No: Chills, Fever HEENTM: No: Eye Pain, Recent change in vision, Nose Pain, Throat Pain, Mouth Pain Respiratory: Yes: Shortness of Breath. No: Cough Cardiac (ROS): Yes: Chest Pain (L), Palpitations. No: Syncope ABD/GI: No: Abdominal Distended, Constipated, Diarrhea, Nausea, Vomiting : No: Burning, Dysuria, Discharge, Frequency, Flank Pain Musculoskeletal: No: Back Pain, Joint Pain, Joint Swelling, Muscle Pain Integumentary: No: Bruising, Dryness, Erythema Neurological: Yes: Headache. No: Seizure, Tingling, Tremors Psychiatric: No: Anxiety, Depression Endocrine: No: Excessive Sweating, Flushing, Intolerance to Cold, Intolerance to Heat Hematologic/Lymphatic: Yes: Anemia, Blood Clots, Easy Bleeding *Physical Exam - Vital Signs Last Vital Signs Temp Pulse Resp BP Pulse Ox 98 F 99 H 20 96/63 100 05/11/19 16:46 05/11/19 16:46 05/11/19 16:46 05/11/19 16:46 05/11/19 16:46 - Physical Exam General Appearance: Yes: Nourished, Appropriately Dressed, Mild Distress HEENT: positive: EOMI, TRUNG, Normal Voice, Hearing Grossly Normal. negative: Scleral Icterus (R), Scleral Icterus (L), Nasal Congestion, Rhinorrhea Respiratory/Chest: positive: Lungs Clear, Normal Breath Sounds. negative: Chest Tender, Respiratory Distress, Crackles, Rales, Rhonchi, Stridor, Wheezing Cardiovascular: positive: Regular Rhythm, S1, S2, Tachycardia. negative: Edema , Murmur Gastrointestinal/Abdominal: positive: Tender (suprapubic mild tenderness), Flat , Soft. negative: Normal Bowel Sounds, Organomegaly, Distended, Guarding Musculoskeletal: negative: CVA Tenderness (R), CVA Tenderness (L) Extremity: positive: Delayed Capillary Refill Integumentary: positive: Pale Neurologic: positive: Fully Oriented, Alert, Normal Response, Responsive. negative: Numbness, Confused, Disoriented ED Treatment Course - LABORATORY CBC & Chemistry Diagram: 05/11/19 17:09 05/11/19 17:09 - ADDITIONAL ORDERS Additional order review: 05/11/19 17:09 RBC 2.78 L MCV 54.3 L MCHC 28.2 L RDW 22.0 H MPV 8.4 Neutrophils % 72.3 Lymphocytes % 16.7 D Monocytes % 8.1 Eosinophils % 1.7 Basophils % 1.2 Medical Decision Making - Medical Decision Making 05/11/19 17:49 CBC CMP trop coags T&S EKG Hgb 4.3. Ordered 2u pRBC. Pt consented to transfusion. Normal coags, CMP EKG shows NSR, HR 92, QTc 427, no ST changes Pt refused CXR for cardiac workup Pending trop Frank Triana is a 43yF w PMHx fibroids, vaginal bleeding, anemia presenting w 10d vaginal bleeding. Symptoms d/t heavy vaginal bleeding causing anemia w Hgb 4.3. No coagulopathy disorders. No evidence of ACS with NSR EKG, pending troponin Planning to admit to hospitalist for anemia Consulted Dr Kirsten COSBY, agrees with plan to transfuse pt, no other emergent treatments indicated at this time, recommends outpatient vaginal bleeding workup and hysterectomy once stabilized Sign out to night team Dr Shi Discharge - Discharge Information Problems reviewed: Yes Clinical Impression/Diagnosis: Symptomatic anemia, Vaginal bleeding Condition: Stable - Follow up/Referral Referrals: Amberly Escobar MD [Primary Care Provider] - - Patient Discharge Instructions - Post Discharge Activity
--- NOTE | 2019-05-11 17:41 | PDOC ---
Attending Attestation - Resident Resident Name: IsiahCarlos - ED Attending Attestation I have performed the following: I have examined & evaluated the patient, The case was reviewed & discussed with the resident, I agree w/resident's findings & plan, Exceptions are as noted - HPI HPI: 05/11/19 17:53 this 43 yo female has melo long history of anemia and menometrorrhagia - Physicial Exam PE: 05/11/19 18:05 43 yo female with history of fibroids p/w complaints of heavy vaginal bleeding ,dizziness,shortness of breath head ncat neck supple lungs cta b/l cvs tachycardia abd no rebound extremities no edema neuro axox3 - Medical Decision Making 05/11/19 18:11 PMH fibroids,anemia and previous blood transfusions hbg=4.3 and pt is symptomatic and requires transfusion and admission 05/11/19 18:14 platelets and coag are unremarkable 05/11/19 18:16 her ekg is NSR @ 92 bpm ,nonspecific T wave abnormality
[2019-05-11 17:43] LABS: ALBUMIN 3.1 g/dl (3.4-5.0); ALK PHOS 67 U/L (45-117); ANION GAP 8 MMOL/L (8-16); BILIRUBIN,TOTAL 0.3 mg/dL (0.2-1); BLOOD UREA NITROGEN 10.5 mg/dL (7-18); CALCIUM 8.4 mg/dL (8.5-10.1); CHLORIDE 104 mmol/L (98-107); CO2 27 mmol/L (21-32); CREATININE 0.6 mg/dL (0.55-1.3); GLUCOSE,RANDOM 118 mg/dL (74-106); POTASSIUM 4.1 mmol/L (3.5-5.1); SGOT/AST 12 U/L (15-37); SGPT/ALT 18 U/L (13-61); SODIUM 139 mmol/L (136-145); TOT PROT 6.6 g/dl (6.4-8.2)
[2019-05-11 19:07] LABS: INR 1.1 (0.83-1.09)
--- NOTE | 2019-05-11 19:08 | PDOC ---
*Physical Exam - Vital Signs Last Vital Signs Temp Pulse Resp BP Pulse Ox 98.9 F 94 H 18 94/54 L 100 05/11/19 18:55 05/11/19 18:55 05/11/19 18:55 05/11/19 18:55 05/11/19 18:55 ED Treatment Course - LABORATORY CBC & Chemistry Diagram: 05/11/19 17:09 05/11/19 17:09 - ADDITIONAL ORDERS Additional order review: Laboratory Results 05/11/19 05/11/19 05/11/19 17:09 17:09 17:09 PT with INR 13.00 INR 1.10 H Sodium 139 Potassium 4.1 Chloride 104 Carbon Dioxide 27 Anion Gap 8 BUN 10.5 Creatinine 0.6 Est GFR (CKD-EPI)AfAm 131.22 Est GFR (CKD-EPI)NonAf 113.22 Random Glucose 118 H Calcium 8.4 L Total Bilirubin 0.3 AST 12 L ALT 18 Alkaline Phosphatase 67 Troponin I < 0.02 Total Protein 6.6 Albumin 3.1 L Blood Type O POSITIVE Antibody Screen Negative Crossmatch See Detail 05/11/19 17:09 RBC 2.78 L MCV 54.3 L MCHC 28.2 L RDW 22.0 H MPV 8.4 Neutrophils % 72.3 Lymphocytes % 16.7 D Monocytes % 8.1 Eosinophils % 1.7 Basophils % 1.2 Medical Decision Making - Medical Decision Making 05/11/19 19:28 Sign out received from Dr. Ross 43F with hx transfusion dependent anemia, fibroid uterus p/w 10 days of vaginal bleeding with clots, hg 4.3 today. 2u PRBCs transfused, pending callback from admitting team. []troponin []admit --- Troponin - negative --- Case discussed with [facility]. Plan for admission to telemetry. Discharge - Discharge Information Problems reviewed: Yes Clinical Impression/Diagnosis: Symptomatic anemia, Vaginal bleeding Condition: Stable - Admission Yes - Follow up/Referral Referrals: Amberly Escobar MD [Primary Care Provider] - - Patient Discharge Instructions - Post Discharge Activity
[2019-05-11 19:19] LABS: ANISOCYTOSIS 3+; OVALOCYTE 2+; PLATELET ESTIMATE ADEQUATE
--- NOTE | 2019-05-11 20:06 | HP ---
Admitting History and Physical - Primary Care Physician PCP: Amberly Escobar - Admission Chief Complaint: Vaginal Bleed with Clots, SOB, Dizziness, Chest Pain History of Present Illness: This is a 43 y/o woman with a PMHx of Anemia (Blood Transfusions), Menorrhagia, Fibroids. Who presents to the ED with vaginal bleeding with clots x 10 days, SOB , CP, headache, and dizziness. Patient reports using 1 pad Q3-4 hrs and passing half-dollar size clots. She reports having lower pelvic cramping as well. The patient reports not seeing a CONTINUING EDUCATION INSTRUCTOR provider since her last hospital admission for same. Patient reports her CP resolved and her SOB is on exertion. Patient denies fever, chills, cough, palpitations, N/V/D, constipation, melena, hematuria, dysuria History Source: Patient Limitations to Obtaining History: No Limitations - Past Medical History Reproductive: Yes: Fibroids ...LMP: 05/11/19 (currently for 10 days) ...: No Heme/Onc: Yes: Anemia (this is her fourth time admitted for blood transfusions) - Past Surgical History Past Surgical History: Yes: None - Smoking History Smoking history: Never smoked Have you smoked in the past 12 months: No Aproximately how many cigarettes per day: 0 - Alcohol/Substance Use Hx Alcohol Use: No History of Substance Use: reports: None - Social History Usual Living Arrangement: Yes: With Spouse Do you think of yourself as: Straight/Heterosexual ADL: Independent History of Recent Travel: No Home Medications - Allergies Allergies/Adverse Reactions: Allergies Allergy/AdvReac Type Severity Reaction Status Date / Time No Known Allergies Allergy Verified 05/11/19 16:45 - Home Medications Home Medications: Ambulatory Orders Nitrofurantoin Monohyd/M-Cryst [Macrobid -] 100 mg PO BID #10 capsule 07/07/18 Family Medical History Other Family History: Heart Disease, DM, Cancer- both sides of family Review of Systems - Review of Systems Constitutional: reports: No Symptoms Eyes: reports: No Symptoms HENT: reports: No Symptoms Neck: reports: No Symptoms Cardiovascular: reports: Chest Pain, Shortness of Breath Respiratory: reports: SOB Gastrointestinal: reports: Other (abdominal cramping) Genitourinary: reports: Vaginal Bleeding Breasts: reports: No Symptoms Reported Musculoskeletal: reports: Back Pain Integumentary: reports: No Symptoms Neurological: reports: Dizziness, Headache Endocrine: reports: No Symptoms Hematology/Lymphatic: reports: No Symptoms Psychiatric: reports: No Symptoms Pain Intensity: 5 Physical Examination Vital Signs: Vital Signs Temperature 98.6 F 05/11/19 19:29 Pulse Rate 91 H 05/11/19 19:29 Respiratory Rate 18 05/11/19 19:29 Blood Pressure 106/69 05/11/19 19:29 O2 Sat by Pulse Oximetry (%) 100 05/11/19 19:29 Constitutional: Yes: No Distress, Calm, Obese Eyes: Yes: WNL, Conjunctiva Clear (pale), EOM Intact, PERRL HENT: Yes: WNL, Atraumatic, Normocephalic Neck: Yes: WNL, Supple, Trachea Midline Cardiovascular: Yes: WNL, Regular Rate and Rhythm, S1, S2 Respiratory: Yes: Regular, CTA Bilaterally, SOB. No: Accessory Muscle Use, Cough, Rhonchi, Tachypnea, Wheezes Gastrointestinal: Yes: Normal Bowel Sounds, Soft, Abdomen, Obese Renal/: Yes: Vaginal Bleeding Breast(s): Yes: WNL Musculoskeletal: Yes: Back Pain Extremities: Yes: WNL Edema: No Peripheral Pulses WNL: Yes Integumentary: Yes: WNL Neurological: Yes: WNL, Alert, Oriented, Cran Nerves II-XII Intact ...Motor Strength: WNL Psychiatric: Yes: WNL, Alert, Oriented Labs: CBC, BMP 05/11/19 17:09 05/11/19 17:09 Laboratory Results - last 24 hr 05/11/19 05/11/19 05/11/19 17:09 17:09 17:09 WBC 7.1 RBC 2.78 L Hgb 4.3 L* Hct 15.1 L D MCV 54.3 L MCH 15.3 L MCHC 28.2 L RDW 22.0 H Plt Count 258 D MPV 8.4 Absolute Neuts (auto) 5.2 Neutrophils % 72.3 Lymphocytes % 16.7 D Monocytes % 8.1 Eosinophils % 1.7 Basophils % 1.2 Nucleated RBC % 0 Hypochromia 3+ Platelet Estimate Adequate Polychromasia 2+ Anisocytosis 3+ Microcytosis 3+ Ovalocytes 2+ Schistocytes 1+ Retic Count PT with INR 13.00 INR 1.10 H Sodium 139 Potassium 4.1 Chloride 104 Carbon Dioxide 27 Anion Gap 8 BUN 10.5 Creatinine 0.6 Est GFR (CKD-EPI)AfAm 131.22 Est GFR (CKD-EPI)NonAf 113.22 Random Glucose 118 H Calcium 8.4 L Total Bilirubin 0.3 AST 12 L ALT 18 Alkaline Phosphatase 67 Troponin I < 0.02 Total Protein 6.6 Albumin 3.1 L Blood Type Antibody Screen Crossmatch 05/11/19 05/11/19 17:09 17:09 WBC RBC Hgb Hct MCV MCH MCHC RDW Plt Count MPV Absolute Neuts (auto) Neutrophils % Lymphocytes % Monocytes % Eosinophils % Basophils % Nucleated RBC % Hypochromia Platelet Estimate Polychromasia Anisocytosis Microcytosis Ovalocytes Schistocytes Retic Count 2.71 H PT with INR INR Sodium Potassium Chloride Carbon Dioxide Anion Gap BUN Creatinine Est GFR (CKD-EPI)AfAm Est GFR (CKD-EPI)NonAf Random Glucose Calcium Total Bilirubin AST ALT Alkaline Phosphatase Troponin I Total Protein Albumin Blood Type O POSITIVE Antibody Screen Negative Crossmatch See Detail Intake & Output 05/08/19 05/09/19 05/10/19 05/11/19 23:59 23:59 23:59 23:59 Weight 86.183 kg Imaging - Results Chest X-ray: Pending EKG: Image Reviewed Problem List - Problems (1) Symptomatic anemia Assessment/Plan: Likely secondary to Menorrghia PRBCs x2 given in ED Serial CBCs Appreciate Hematology Consult Add on FE, TIBC, Ferritin Cardiac monitoring O2 Code(s): D64.9 - ANEMIA, UNSPECIFIED (2) Chest pain Assessment/Plan: Likely secondary to Anemia less likely ACS Cardiac monitoring Serial Enzymes Patient adamantly declines Cardiac consult she states CP resolved and attributes earlier CP to her being profoundly anemic Discussed in detail benefits of having a Cardiac eval, pt still declines. Hold Asa secondary to vaginal bleeding and anemia Code(s): R07.9 - CHEST PAIN, UNSPECIFIED (3) SOB (shortness of breath) Assessment/Plan: Likely secondary to Anemia O2 Chest Xray-pending Code(s): R06.02 - SHORTNESS OF BREATH (4) Vaginal bleeding Assessment/Plan: Patient reports using 1pad Q3-4hrs with half-dollar size clots x 10 days Appreciate CONTIN[employer]UCATION INSTRUCTOR Consult Consider transvaginal US Serum Preg add on to prior labs-pending Monitor CBC Monitor vitals Code(s): N93.9 - ABNORMAL UTERINE AND VAGINAL BLEEDING, UNSPECIFIED (5) Uterine fibroid Assessment/Plan: hx Fibroid Appreciate CONTINUING EDUCATION INSTRUCTOR consult Code(s): D25.9 - LEIOMYOMA OF UTERUS, UNSPECIFIED Assessment/Plan This is a 43 y/o woman with a PMHx of Anemia (blood Transfusions), Menorrhagia, Fibroids. Admitted to Telemetry for Symptomatic Anemia, Chest Pain for further evaluation of their emergent condition. Plan: See Problem List FEN PO fluids as tolerated Replete lytes prn Regular Diet DVT ppx OOB SCDs Hold AC secondary to Anemia Code: Full Code Dispo: Requires Inpatient Care Visit type - Emergency Visit Emergency Visit: Yes ED Registration Date: 05/11/19 Care time: The patient presented to the Emergency Department on the above date and was hospitalized for further evaluation of their emergent condition. - New Patient This patient is new to me today: Yes Date on this admission: 05/11/19 - Critical Care Critical Care patient: No
[2019-05-11] MEDS ORDERED: ACETAMINOPHEN 1000 MG/100 ML VIAL (NON FORMULARY) IVPB ONE (21:33)
[2019-05-11 22:38] LABS: IRON SERUM 11 ug/dL (50-175); TOTAL IRON BINDING CAPACITY 458 ug/dL (250-450)
[2019-05-12 02:33] LABS: BASO % 0.9 % (0-2.0); EOS % 2.4 % (0-4.5); HEMATOCRIT 21.4 % (32.4-45.2); LYMPH % 26.6 % (8-40); MCH 20.3 pg (25.7-33.7); MCHC 31.3 g/dl (32.0-36.0); MEAN CELL VOLUME 64.9 fl (80-96); MEAN PLT VOLUME 9.1 fl (7.5-11.1); NEUT % 62.1 % (42.8-82.8); PLATELET COUNT 218 K/MM3 (134-434); RDW 34.3 % (11.6-15.6); WHITE BLOOD COUNT 6.6 K/mm3 (4.0-10.0)
[2019-05-12 02:36] LABS: HEMOGLOBIN 6.7 GM/dL (10.7-15.3)
[2019-05-12 03:31] VITALS: BMI 35.5
--- NOTE | 2019-05-12 09:13 | PN ---
Progress Note (short form) - Note Progress Note: 12 days of heavy vaginal bleeding with large clots to the point where she got dizzy, dyspneic on minimal exertion. now she reports her vaginal bleed has lessened but still present has had d+c two years ago, did not follow up with call center consultant since known fibroids CBC, BMP 05/12/19 02:10 05/11/19 17:09 Vital Signs Period Temp Pulse Resp BP Sys/Ingram Pulse Ox Last 24 Hr 98 F-99.3 F 83-99 17-20 94-115/40-69 98-100 s1s2 rrr lungs cta abd pelvic fulness/fibroids no edema symptomatic anemia due to acute blood loss vaginal bleeding transfuse 4th unit prbc repeat cbc afterwards call center consultant consult requested for evaluation can not do pelvic us until blood is finished
--- NOTE | 2019-05-12 10:05 | EKG ---
Test Reason : Blood Pressure : / mmHG Vent. Rate : 092 BPM Atrial Rate : 092 BPM P-R Int : 154 ms QRS Dur : 080 ms QT Int : 346 ms P-R-T Axes : 035 052 036 degrees QTc Int : 427 ms NORMAL SINUS RHYTHM NONSPECIFIC T WAVE ABNORMALITY ABNORMAL ECG NO PREVIOUS ECGS AVAILABLE Confirmed by Benedicto Rivero MD ([id number]) on 05/12/2019 10:04:51 AM Referred By: Confirmed By:Benedicto Rivero MD
[2019-05-12] MEDS: FERROUS SO4 325 MG TABLET (FP) PO SCH (10:19)
[2019-05-12] MEDS: DOCUSATE SODIUM 100 MG CAPSULE (FP) PO SCH (10:19)
[2019-05-12] MEDS ORDERED: ACETAMINOPHEN 325 MG TABLET (FP) PO PRN (14:00)
--- NOTE | 2019-05-12 14:07 | CONSULT ---
Consult Consult Specialty:: OBGYN Reason for Consultation:: Dysfunctional Uterine Bleeding, H/O Fibroids - History of Present Illness Chief Complaint: HMB, symptomatic anemia History of Present Illness: 43yo here with symptomatic anemia. Longstanding history of HMB, regular cycles lasting up to 8 days, passage of clots. No IMB. Admitted for this in 2017, received a transfusion & D&C. Did not follow up with Dr. Bee upon discharge for follow up. States things were in her usual state of health, but this last period has persistent longer than usual and was quite heavy Today it has slowed down, but she reports having changed her pad 3x today already. - History Source History Provided By: Patient Limitations to Obtaining History: No Limitations - Past Medical History SHIP PILOT DISPATCHER: No: Alzheimer's, CVA, Dementia, Migraine, Multiple Sclerosis, Peripheral Neuropathy, Parkinson's, Seizure, Syncope, TIA, Vertigo, Other ...LMP: 05/11/19 (currently for 10 days) ...LMP Comment: IN PROGRESS ...: No Heme/Onc: Yes: Anemia - Past Surgical History Past Surgical History: Yes: Additional Surgical History: D&C, C- Seciton - Alcohol/Substance Use Hx Alcohol Use: No History of Substance Use: reports: None - Smoking History Smoking history: Never smoked Have you smoked in the past 12 months: No Aproximately how many cigarettes per day: 0 - Social History ADL: Independent History of Recent Travel: No Home Medications - Allergies Allergies/Adverse Reactions: Allergies Allergy/AdvReac Type Severity Reaction Status Date / Time No Known Allergies Allergy Verified 05/11/19 16:45 - Home Medications Home Medications: Ambulatory Orders Nitrofurantoin Monohyd/M-Cryst [Macrobid -] 100 mg PO BID #10 capsule 07/07/18 Physical Exam Vital Signs: Vital Signs Temperature 98.4 F 05/12/19 09:15 Pulse Rate 84 05/12/19 09:15 Respiratory Rate 18 05/12/19 09:15 Blood Pressure 108/65 05/12/19 09:15 O2 Sat by Pulse Oximetry (%) 100 05/12/19 09:00 Constitutional: Yes: Well Nourished (Deferred pelvic exam per pt request), No Distress, Calm Labs: CBC, BMP 05/12/19 02:10 05/11/19 17:09 Problem List - Problems (1) Symptomatic anemia Code(s): D64.9 - ANEMIA, UNSPECIFIED (2) Vaginal bleeding Code(s): N93.9 - ABNORMAL UTERINE AND VAGINAL BLEEDING, UNSPECIFIED Assessment/Plan 43yo with DUB, symptomtic anemia, fibroids Receiving transfusion per medicine team, H/H slowly rising. Pt responding appropriately Previous pathology from 2017 negative from D&C Pt would ultimately like surgical/definitive management, but will have to follow up as outpatient to start that process. Recommend repeating the TVUS, with review of results during her outpatient follow up. Provera 10mg daily for 14 day course. Will help decrease and/or stop bleeding while using this. Upon discontinuation, she will bleed again She should follow up as an outpatient with [facility] Care at [address] [place] [address], where she should be able to be seen within 2-3 days for follow up. Lata Valle MD
[2019-05-12 16:20] LABS: BASO % 1.1 % (0-2.0); HEMOGLOBIN 9.2 GM/dL (10.7-15.3); LYMPH % 18.5 % (8-40); MCH 22.9 pg (25.7-33.7); MCHC 31.8 g/dl (32.0-36.0); MEAN CELL VOLUME 72.2 fl (80-96); MEAN PLT VOLUME 8.6 fl (7.5-11.1); MONO % 6.9 % (3.8-10.2); NEUT % 71.5 % (42.8-82.8); PLATELET COUNT 214 K/MM3 (134-434); RBC 4.01 M/mm3 (3.60-5.2); RDW 33.5 % (11.6-15.6); WHITE BLOOD COUNT 7.8 K/mm3 (4.0-10.0)
[2019-05-12 17:33] LABS: ANION GAP 7 MMOL/L (8-16); BLOOD UREA NITROGEN 9.3 mg/dL (7-18); CHLORIDE 106 mmol/L (98-107); CO2 26 mmol/L (21-32); CREATININE 0.6 mg/dL (0.55-1.3); GLUCOSE,RANDOM 85 mg/dL (74-106); SODIUM 139 mmol/L (136-145)
[2019-05-12] MEDS ORDERED: PT OWN MED DRAWER 7, Y5N ONE (23:02)
[2019-05-13 05:56] VITALS: TEMP 98.7
[2019-05-13 06:18] LABS: HEMATOCRIT 26.2 % (32.4-45.2); HEMOGLOBIN 8.5 GM/dL (10.7-15.3); MCH 23.2 pg (25.7-33.7); MCHC 32.6 g/dl (32.0-36.0); MEAN CELL VOLUME 71.2 fl (80-96); MEAN PLT VOLUME 8.5 fl (7.5-11.1); PLATELET COUNT 198 K/MM3 (134-434); RBC 3.68 M/mm3 (3.60-5.2); RDW 33.5 % (11.6-15.6)
[2019-05-13 09:14] VITALS: BP 106/75; PULSE 81
[2019-05-13] MEDS ORDERED: PT OWN MED DRAWER 7, Y5N ONE (09:57)
[2019-05-13] MEDS: FERROUS SO4 325 MG TABLET (FP) PO SCH (10:16)
[2019-05-13] MEDS: DOCUSATE SODIUM 100 MG CAPSULE (FP) PO SCH (10:16)
--- NOTE | 2019-05-13 12:13 | DS ---
Physical Examination Vital Signs: Vital Signs Temperature 98.7 F 05/13/19 05:55 Pulse Rate 81 05/13/19 09:13 Respiratory Rate 18 05/13/19 09:13 Blood Pressure 106/75 05/13/19 09:13 O2 Sat by Pulse Oximetry (%) 100 05/12/19 20:23 Constitutional: Yes: No Distress, Calm HENT: Yes: Normocephalic Neck: Yes: Trachea Midline Cardiovascular: Yes: Regular Rate and Rhythm Respiratory: Yes: CTA Bilaterally Gastrointestinal: Yes: Normal Bowel Sounds, Soft, Abdomen, Obese Edema: No Labs: CBC, BMP 05/13/19 05:48 05/12/19 16:00 Discharge Summary Problems reviewed: Yes Reason For Visit: ANEMIA Current Active Problems Chest pain (Acute) SOB (shortness of breath) (Acute) Symptomatic anemia (Acute) Vaginal bleeding (Acute) Hospital Course: 12 days of heavy vaginal bleeding with large clots to the point where she got dizzy, dyspneic on minimal exertion. has had d+c two years ago, did not follow up with manager utility since US showed thickened endometrium, no discrete fibnroids started provera with some response, reports less bleeding this am. transfused 4 units PRBC, appropriate H/H response needs very close outpt manager utility follow up, explained pt that without follow up this will keep on happening Condition: Fair - Instructions Diet, Activity, Other Instructions: Provera 10mg daily for 14 day course. Will help decrease and/or stop bleeding while using this. Upon discontinuation, you will bleed again Follow up as an outpatient with [facility] Care at [address] [place] [address], where you should be able to be seen within 2-3 days for follow up. Disposition: HOME - Home Medications Comprehensive Discharge Medication List: Ambulatory Orders Docusate Sodium [Colace -] 100 mg PO DAILY capsule 05/13/19 Ferrous Sulfate [Feosol] 325 mg PO DAILY #30 tab 05/13/19 Medroxyprogesterone Acetate [Provera -] 10 mg PO DAILY #14 tablet 05/13/19
[2019-05-13 12:25] LABS: ANISOCYTOSIS 1+; MACROCYTOSIS 1+; OVALOCYTE 2+; PLATELET ESTIMATE NORMAL
[2019-05-14] MEDS ORDERED: ASCORBIC ACID 500 MG TABLET (FP) PO SCH (10:00)
== END 2019-05-13 13:19 | disposition home or self-care (01) | DRG 812 ==
LOC: JER 16:43 → JERBED 18:20 → J4W 05-12 00:40
PROVIDERS: ADMIT Internal Medicine; ATTEND Internal Medicine
PROC: 30233N1 Transfusion of Nonautologous Red Blood Cells into Peripheral Vein, Percutaneous Approach (ICD-10-PCS; principal; 2019-05-11)
DX: D62 Acute posthemorrhagic anemia (principal); R07.9 Chest pain, unspecified; R06.02 Shortness of breath; N93.9 Abnormal uterine and vaginal bleeding, unspecified; E66.9 Obesity, unspecified; Z68.35 Body mass index [BMI] 35.0-35.9, adult; D25.9 Leiomyoma of uterus, unspecified
CPT/HCPCS: 36415; 36430; 36511; 76830-TC; 80048; 80053; 82728; 83540; 83550; 84484; 84702; 85025; 85027; 85044; 85610; 86850; 86900; 86901; 86922; 93005; 93010; 99285-25; J0131; P9038; P9058

== ENCOUNTER 2019-06-02 05:21 | Day surgery (SDC) | payer OTHER ==
[2019-06-01 13:45] VITALS: BMI 34.7
--- NOTE | 2019-06-02 07:39 | HP ---
History & Physical Update - Physical Physical: No Change - Assessment Assessment: No Change - Plan Plan: No Change (H&P reviwed , no changes , Espinoza&C)
[2019-06-02] MEDS ORDERED: DEXAMETHASONE SOD PHOSPHATE 4 MG/1 ML VIAL ONE (10:40)
[2019-06-02] MEDS ORDERED: PROPOFOL 20 ML ONE ×2 (10:41→10:56)
[2019-06-02] MEDS ORDERED: ONDANSETRON 4 MG/2 ML VIAL IVPUSH PRN ×4 (10:41→14:36)
[2019-06-02] MEDS ORDERED: oxyCODONE HCL 5 MG TABLET PO PRN ×2 (10:41→11:57)
[2019-06-02] MEDS ORDERED: MIDAZOLAM HCL 2 MG/2 ML SINGLE DOSE VIAL ONE (10:41)
[2019-06-02] MEDS ORDERED: LACTATED RINGERS SOLUTION 1,000 ML IV SCH (10:45)
[2019-06-02] MEDS ORDERED: KETOROLAC TROMETHAMINE 30 MG/1 ML VIAL ONE (11:08)
[2019-06-02] MEDS ORDERED: IBUPROFEN 600 MG TABLET (FP) PO PRN (11:57)
[2019-06-02] MEDS ORDERED: IBUPROFEN 800 MG/8 ML IJ IVPB PRN (11:57)
[2019-06-02] MEDS ORDERED: ELECTROLYTE-148 SOLN 1,000 ML IV SCH (12:00)
--- NOTE | 2019-06-02 12:03 | OP ---
Operative Note - Note: Operative Date: 06/02/19 Pre-Operative Diagnosis: menometrorrhagia , fibroid uterus, anemia Operation: hysteroscopy , D&C , polypectomy Findings: cx clean, enlarged uterus, 20 weeks , uterus sounded 18 cm. irregular EM ,, thicken with 3 polyps Post-Operative Diagnosis: Same as Pre-op Surgeon: Phill Bee Anesthesia: General Estimated Blood Loss (mls): 150 Drains & Tubes with Location: none Blood Volume Replaced (mls): 0 Operative Report Dictated: Yes
[2019-06-02 14:16] VITALS: TEMP 98.2
--- NOTE | 2019-06-02 14:58 | OP ---
DATE OF OPERATION: 06/02/2019 PREOPERATIVE DIAGNOSES: Menometrorrhagia, anemia, large fibroid uterus. POSTOPERATIVE DIAGNOSES: Menometrorrhagia, anemia, large fibroid uterus. PROCEDURE: Hysteroscopy, dilation and curettage, and polypectomy. SURGEON: Phill Bee MD ANESTHESIA: General. ESTIMATED BLOOD LOSS: 150 mL. OPERATION: Patient was taken to operating room on adequate general anesthesia in dorsal lithotomy position. Examination under anesthesia revealed external genitalia to be normal, vagina was normal, cervix was clean, no lesion. Uterus was enlarged, 20 weeks size uterus, anteverted. Adnexa, no masses were palpable. Then, with a weighted speculum in the vagina, anterior lip of the cervix was grasped with single-tooth tenaculum. Cervix was slightly dilated. Hysteroscope was introduced. Visualization of endocervical canal appeared to be normal. Endometrium was irregular, had 2 polyps, and there also appeared to be a necrotic submucous myoma was seen at the midbody of the uterus. Two polyps were removed and then endometrium was curetted. Large amount of tissue was obtained. Patient tolerated procedure well, left the OR in good condition. PHILL BEE M.D. [id number]
[2019-06-02 15:28] VITALS: BP 118/64; PULSE 100
--- NOTE | 2019-06-05 11:30 | PATH ---
Surgical Pathology Report Patient Name: PORTER PABLO [facility]. Rec. #: [id number] /Age/Gender: 1975 (Age: 43) / F Account: [id number] Location: [facility] Taken: 06/02/2019 Received: 06/02/2019 Reported: 06/05/2019 Physicians: Phill Bee M.D. Specimen(s) Received A: ENDOCERVICAL CURETTINGS B: ENDOMETRIAL CURETTINGS Clinical History Uterine fibroids, menorrhagia Final Diagnosis A. ENDOCERVICAL CURETTINGS, DILATION AND CURETTAGE: SCANT POLYPOID FRAGMENTS OF ENDOMETRIAL TISSUE, LINED BY ATYPICAL CELLS, ATROPHIC GLANDS, AND STROMAL DECIDUALIZATION ADMIXED WITH BENIGN ENDOCERVICAL TISSUE. SEE COMMENT. B. ENDOMETRIAL CURETTINGS, DILATION AND CURETTAGE: COMPLEX ATYPICAL HYPERPLASIA. POLYPOID ENDOMETRIAL TISSUE LINED BY ATYPICAL CELLS, ATROPHIC GLANDS, AND DECIDUALIZED STROMA. ACUTE AND CHRONIC ENDOMETRITIS. BENIGN CERVICAL TISSUE IN A BACKGROUND OF ABUNDANT BLOOD. Comment: There are atypical cells lining some polypoid fragments of endometrium with mild to moderate atypia and mild epithelial proliferation. Immunohistochemical stains performed on blocks (A1, B4, B11, B12) at [place], [place] ([id number]) and interpreted at [facility] show these atypical epithelial cells have patchy positivity for p16 and p53 (wild type staining). Ki-67 shows low to intermediate proliferation. There are separate foci of complex branching glands with cytologic atypia. Background shows atrophic endometrium with decidualized stroma consistent with exogenous hormone effect and acute and chronic endometritis. Prior biopsy ([id number]) is reviewed. Suggest clinical correlation. Findings discussed with Dr. Bee. Positive and negative controls (internal if applicable) show appropriate results. Electronically Signed Carmen Christensen M.D. Gross Description A. Received in formalin labeled "endocervical curettings," is a 1.8 x 1.7 x 0.3 cm aggregate of gamez soft tissue fragments admixed with blood clot. The formalin is filtered and the specimen is entirely submitted in one cassette. B. Received in formalin labeled "endometrial curettings," is a 10.0 x 8.0 x 0.8 cm aggregate of gamez soft tissue fragments admixed with blood clot. The specimen is entirely submitted in 14 cassettes. 06/02/2019 saudi06/02/2019
== END 2019-06-02 15:20 | disposition home or self-care (01) ==
LOC: JASU-SURG 05:21
PROVIDERS: ATTEND Obstetrics & Gynecology
PROC: 0UJD8ZZ Inspection of Uterus and Cervix, Via Natural or Artificial Opening Endoscopic (ICD-10-PCS; 2019-06-02)
PROC: 0UB97ZX Excision of Uterus, Via Natural or Artificial Opening, Diagnostic (ICD-10-PCS; principal; 2019-06-02 11:00)
PROC: 0UDB7ZX Extraction of Endometrium, Via Natural or Artificial Opening, Diagnostic (ICD-10-PCS; 2019-06-02 11:00)
DX: N92.1 Excessive and frequent menstruation with irregular cycle (principal); D25.9 Leiomyoma of uterus, unspecified; D64.9 Anemia, unspecified; N84.0 Polyp of corpus uteri
CPT/HCPCS: 88305-TC; 94760

== ENCOUNTER 2019-06-05 15:31 | Inpatient (IN) | payer OTHER ==
--- NOTE | 2019-06-05 15:50 | PDOC ---
Rapid Medical Evaluation Time Seen by Provider: 06/05/19 15:45 Medical Evaluation: Allergies Allergy/AdvReac Type Severity Reaction Status Date / Time No Known Allergies Allergy Verified 06/02/19 09:31 06/05/19 15:46 I have performed a brief in-person evaluation of this patient. The patient presents with a chief complaint of: s/p D and C 4 days ago, bleeding a lot (4-5 pads a day). (+)transfusion in the past. (+)pain with urination Feels weak, tired, without energy, mild difficulty breathing, no CP Pertinent physical exam findings: slightly pale I have ordered the following: CBC, CMP, type and screen, UA, Ucx The patient will proceed to the ED for further evaluation. Discharge Disposition - Diagnosis Vaginal bleeding - Referrals - Patient Instructions - Post Discharge Activity
[2019-06-05 16:28] LABS: BASO % 0.9 % (0-2.0); EOS % 2.2 % (0-4.5); HEMATOCRIT 23.2 % (32.4-45.2); HEMOGLOBIN 7.1 GM/dL (10.7-15.3); LYMPH % 18.7 % (8-40); MCH 22.4 pg (25.7-33.7); MCHC 30.6 g/dl (32.0-36.0); MEAN CELL VOLUME 73.2 fl (80-96); MEAN PLT VOLUME 8.6 fl (7.5-11.1); MONO % 7.4 % (3.8-10.2); NEUT % 70.8 % (42.8-82.8); PLATELET COUNT 352 K/MM3 (134-434); RBC 3.17 M/mm3 (3.60-5.2); RDW 27.5 % (11.6-15.6); WHITE BLOOD COUNT 7.8 K/mm3 (4.0-10.0)
--- NOTE | 2019-06-05 16:49 | PDOC ---
History of Present Illness - General Chief Complaint: Vaginal Bleeding Stated Complaint: PAIN / BLEEDING Time Seen by Provider: 06/05/19 15:45 History Source: Patient - History of Present Illness Initial Comments: 06/05/19 17:03 43 yo F PMH of Anemia (s/p transfusions), Fibroids, menhorrhaigia, D&C on w/ Dr. Figueroa presents to the ED with persistent vaginal bleeding and abdominal cramping. Pt states that after D&C she has been experiencing abd cramping that radiates to her back. She states that the pain is intermittent and is a 10/10 at its worst. Patient also states that she has soaked through multiples pads occasionally having to change 1 every hour. Patient notes recent shortness of breath and decrease in appetite. She reports trying to eat but feels as though she would vomit if she does. At time of presentation, patient denies any abd pain. Patient denies any chest pain, nausea, or vomiting. Pt endorses shortness of breath. 06/05/19 17:36 Past History - Past Medical History Allergies/Adverse Reactions: Allergies Allergy/AdvReac Type Severity Reaction Status Date / Time No Known Allergies Allergy Verified 06/05/19 15:47 Home Medications: Ambulatory Orders Ferrous Sulfate [Feosol] 325 mg PO DAILY #30 tab 05/13/19 Medroxyprogesterone Acetate [Provera -] 10 mg PO DAILY #14 tablet 05/13/19 Anemia: Yes Asthma: Yes (seasonal) Cancer: No Cardiac Disorders: No CVA: No COPD: No CHF: No Dementia: No Diabetes: No GI Disorders: No Disorders: No HTN: No Hypercholesterolemia: No Liver Disease: No Seizures: No Thyroid Disease: Yes - Surgical History Abdominal Surgery: No Appendectomy: No Cardiac Surgery: No Cholecystectomy: No Lung Surgery: No Neurologic Surgery: No Orthopedic Surgery: No - Immunization History Immunization Up to Date: Yes - Psycho Social/Smoking Cessation Hx Smoking Status: No Smoking History: Never smoked Have you smoked in the past 12 months: No Number of Cigarettes Smoked Daily: 0 Hx Alcohol Use: No Drug/Substance Use Hx: No Substance Use Type: None Hx Substance Use Treatment: No Review of Systems - Review of Systems Able to Perform ROS?: Yes Constitutional: No: Chills, Fever HEENTM: No: Blurred Vision Respiratory: Yes: Shortness of Breath, SOB with Exertion. No: Wheezing Cardiac (ROS): No: Chest Pain, Lightheadedness ABD/GI: Yes: Poor Appetite, Poor Fluid Intake Neurological: Yes: Headache. No: Weakness, Dizziness *Physical Exam - Vital Signs Last Vital Signs Temp Pulse Resp BP Pulse Ox 98.2 F 98 H 18 121/86 100 06/05/19 15:47 06/05/19 15:47 06/05/19 15:47 06/05/19 15:47 06/05/19 15:47 - Physical Exam General Appearance: Yes: Nourished, Appropriately Dressed, Mild Distress Respiratory/Chest: positive: Lungs Clear, Normal Breath Sounds. negative: Accessory Muscle Use, Crackles, Wheezing Cardiovascular: positive: Regular Rhythm, Regular Rate, S1, S2, Edema Female Pelvic Exam: positive: lesions, adnexal tenderness, vaginal bleeding, other (nodular irregularity on uterus) Gastrointestinal/Abdominal: positive: Normal Bowel Sounds, Soft Musculoskeletal: negative: CVA Tenderness (R), CVA Tenderness (L) Extremity: positive: Tender, Swelling ED Treatment Course - LABORATORY CBC & Chemistry Diagram: 06/05/19 16:11 06/05/19 16:11 - ADDITIONAL ORDERS Additional order review: 06/05/19 16:11 RBC 3.17 L MCV 73.2 L MCHC 30.6 L RDW 27.5 H MPV 8.6 Neutrophils % 70.8 D Lymphocytes % 18.7 D Monocytes % 7.4 Eosinophils % 2.2 Basophils % 0.9 Medical Decision Making - Medical Decision Making CBC, BMP 06/05/19 16:11 06/05/19 16:11 06/05/19 17:03 43 yo F presented to ED with persistent vaginal bleeding and symptomatic anemia s/p D&C on 06/02 symptomatic anemia fibroids -performed pelvic exam , palpated irregular nodule on anterior aspect of vaginal wall; active bleeding -H/H 7.1/23.2 ; last Hgb 8.1 -transfuse 1 uprbc -continue to monitor -EKG NSR -consulted service of Dr. Bee, pt may need IV estrogen for bleeding -pain mgmt with ibuprofen prn 06/05/19 17:37 Discharge - Discharge Information Problems reviewed: Yes Clinical Impression/Diagnosis: Vaginal bleeding - Admission Yes - Follow up/Referral - Patient Discharge Instructions - Post Discharge Activity
[2019-06-05 16:58] LABS: ALBUMIN 3.1 g/dl (3.4-5.0); BILIRUBIN,TOTAL 0.3 mg/dL (0.2-1); BLOOD UREA NITROGEN 8.5 mg/dL (7-18); CALCIUM 8.6 mg/dL (8.5-10.1); CREATININE 0.7 mg/dL (0.55-1.3); POTASSIUM 4.2 mmol/L (3.5-5.1); TOT PROT 6.8 g/dl (6.4-8.2)
[2019-06-05] MEDS ORDERED: IBUPROFEN 200 MG TABLET PO PRN (17:01)
[2019-06-05 17:08] LABS: ANISOCYTOSIS 2+; OVALOCYTE 1+; PLATELET ESTIMATE ADEQUATE; TARGET CELLS 1+
[2019-06-05 17:09] LABS: URINE BACTERIA FEW /hpf (NEGATIVE); URINE RBC >100 /hpf (0-4)
[2019-06-05] MEDS ORDERED: SODIUM CHLORIDE 500 ML IV STA (18:18)
--- NOTE | 2019-06-05 18:44 | PDOC ---
Documentation entered by Janey Wilcox SCRIBE, acting as scribe for Ayad Oconnor MD. Ayad Oconnor MD: This documentation has been prepared by the Brenden mejía Adrianna, SCRIBE, under my direction and personally reviewed by me in its entirety. I confirm that the documentation accurately reflects all work, treatment, procedures, and medical decision making performed by me. Attending Attestation - Resident Resident Name: Africa Garcia - ED Attending Attestation I have performed the following: I have examined & evaluated the patient, The case was reviewed & discussed with the resident, I agree w/resident's findings & plan, Exceptions are as noted - HPI HPI: 43 y.o F, with PMH of anemia (s/p transfusions), Fibroids, menorrhagia, and recent D&C (on 06/02/19 w/ Dr. Figueroa), presenting with abdominal pain and vaginal bleeding. Patient endorses lower abdominal cramping that radiates to her back since her D&C, as well as vaginal bleeding causing her to soak through one pad an hour. Allergies: NKA, NKDA Surgical History: None reported Social History: No toxic habits PCP: Dr. Escobar MOTION PICTURE ACTOR: Dr. Bee - Physicial Exam PE: 06/05/19 18:42 Patient is awake and alert, well-nourished, in no distress normocephalic and atraumatic PERRLA, EOMI, conjunctiva pale CTA RRR Abdomen soft, nontender Pelvic exam: Please see evaluation by Dr. Geri Garcia Cap refill is less than 2 seconds - Medical Decision Making 06/05/19 18:43 Patient is a 43-year-old female with history of uterine fibroids, menometrorrhagia, status post D&C who presents with vaginal bleeding and dizziness. Patient symptoms are consistent with symptomatic anemia. Patient is hemodynamically stable at this time. Initial hematocrit is noted to be 23 which is 3 points less than 26 obtained preop. Given the symptomatology, will administer 1 unit of packed cells. Will admit to DRAMA DIRECTOR.
[2019-06-05 19:08] LABS: PHOSPHOROUS 4.8 mg/dL (2.5-4.9)
--- NOTE | 2019-06-05 19:19 | HP ---
Past Medical History - Primary Care Physician PCP:: Rob Chew - Admission Chief Complaint: 43yo P1 presented to ER today with c/o vaginal bleeding for several weeks, heavier today. History of Present Illness: Long h/o heavy menses and anemia. Pt has large fibroids. She has had blood transfusions before. Prior D&C for menorrhagia in 2017 showed complex atypical endometrial hyperplasia. The pt did not follow up postop. She was seen in 2018 for menorrhagia and anemia. The pt was again transfused blood and discharged to home with Provera 10mg PO daily. She had a D&C on 06/02/2019 that again showed complex endometrial hyperplasia. She returned to ER today with c/o pelvic cramps and heavy vaginal bleeding. She is not on Provera at this time. The pt states that Provera had slowed down her bleeding in the past but did not stop it. History Source: Patient, Medical Record Limitations to Obtaining History: No Limitations - Past Medical History HUMAN CAPITAL CONSULTANT: No: Alzheimer's, CVA, Dementia, Migraine, Multiple Sclerosis, Peripheral Neuropathy, Parkinson's, Seizure, Syncope, TIA, Vertigo, Other Cardiovascular: No: AFIB, Aneurysm, Aortic Insufficiency, Aortic Stenosis, CAD, CHF, Deep Vein Thrombosis, HTN, Hyperlipdemia, [place], Mitral Insufficiency, Mitral Stenosis, Murmur, Pulmonary Hypertension, Other Pulmonary: No: Asthma, Bronchitis, Cancer, COPD, O2 Dependent, Pneumonia, Previously Intubated, Pulmonary Embolus, Pulmonary Fibrosis, Sleep Apnea, Other Gastrointestinal: No: Ascites, Cancer, Constipation, Crohn's Disease, Diverticulitis, Diverticulosis, Esophageal Varices, Gastritis, GERD, GI Bleed, Hemorrhoids, Hiatal Hernia, Inflamatory Bowel Disease, Irritable Bowel Disease, Pancreatitis, Peptic Ulcer Disease, Ulcerative Colitis, Other Hepatobiliary: No: Cirrhosis, Cholelithiasis, Cholecystitis, Choledocholithiasis , Hepatitis A, Hepatitis B, Hepatitis C, Other Renal/: No: Renal Failure, Renal Inusuff, BPH, Cancer, Hematuria, Hemodialysis , Neurogenic Bladder, Renal Calculi, UTI, Other Reproductive: No: Ectopic , Endometriosis, Fibroids, PID, Polycystic Ovary Syndrome, Postmenopausal, Other ...: 1 ...Para: 1 Heme/Onc: Yes: Anemia Infectious Disease: No: AIDS, C-Diff, Herpes Zoster, HIV, MRSA, STD's, Tuberculosis, VREF, Other Psych: No: Addictions, Anxiety, Bipolar, Depression, Panic, Psychosis, Schizophrenia, Other Musculoskeletal: No: Bursitis, Chronic low back pain, Hemiparesis, Hemiplegia, Osteoarthritis, Paraplegia, Other Rheumatology: No: Fibromyalgia, Gout, Lupus, Rheumatoid Arthritis, Sarcoidosis, Vasculitis, Other ENT: No: Allergic Rhinitis, Sinusitis, Other Endocrine: No: Vignesh's Disease, Nadine's Disease, Diabetes Insipidus, Diabetes Mellitus, Hyperparathyroidism, Hyperthyroidism, Hypothyroidism, Osteopenia, SIADH, Other Dermatology: No: Basal Cell, Cellulitis, Eczema, Melanoma, Psoriasis, Squamous Cell, Other - Past Surgical History Past Surgical History: Yes: Hx Myomectomy: No Hx Transabdominal Cerclage: No Additional Surgical History: D&C x 2-3 - Smoking History Smoking history: Never smoked Have you smoked in the past 12 months: No Aproximately how many cigarettes per day: 0 - Alcohol/Substance Use Hx Alcohol Use: No History of Substance Use: reports: None - Social History Usual Living Arrangement: Yes: With Significant Other ADL: Independent Occupation: Works at [employer] History of Recent Travel: No Home Medications - Allergies Allergies/Adverse Reactions: Allergies Allergy/AdvReac Type Severity Reaction Status Date / Time No Known Allergies Allergy Verified 06/05/19 15:47 - Home Medications Home Medications: Ambulatory Orders Ferrous Sulfate [Feosol] 325 mg PO DAILY #30 tab 05/13/19 Medroxyprogesterone Acetate [Provera -] 10 mg PO DAILY #14 tablet 05/13/19 Review of Systems Findings/Remarks: Overweight, NAD - Review of Systems Constitutional: reports: No Symptoms Eyes: reports: No Symptoms HENT: reports: No Symptoms Neck: reports: No Symptoms Cardiovascular: reports: No Symptoms Respiratory: reports: No Symptoms Gastrointestinal: reports: No Symptoms Genitourinary: reports: Vaginal Bleeding Breasts: reports: No Symptoms Reported Musculoskeletal: reports: No Symptoms Integumentary: reports: No Symptoms Neurological: reports: No Symptoms Endocrine: reports: No Symptoms Hematology/Lymphatic: reports: No Symptoms Psychiatric: reports: No Symptoms Pain Intensity: 2 Physical Exam-ESCALATOR CONSTRUCTOR Vital Signs: Vital Signs Temperature 98.2 F 06/05/19 15:47 Pulse Rate 98 H 06/05/19 15:47 Respiratory Rate 18 06/05/19 15:47 Blood Pressure 121/86 06/05/19 15:47 O2 Sat by Pulse Oximetry (%) 100 06/05/19 18:00 Constitutional: Yes: No Distress, Calm, Obese Eyes: Yes: WNL, Conjunctiva Clear HENT: Yes: WNL, Atraumatic, Normocephalic Neck: Yes: WNL, Supple, Trachea Midline Cardiovascular: Yes: WNL, Regular Rate and Rhythm Respiratory: Yes: WNL, Regular, CTA Bilaterally Gastrointestinal: Yes: Normal Bowel Sounds, Soft, Abdomen, Obese ...Rectal Exam: Yes: Deferred Renal/: Yes: WNL Pelvis: Yes: WNL External Genitalia: Yes: Normal Internal Exam Deferred: No Vaginal Exam: Yes: Bleeding Cervix: Yes: Normal Uterus: Yes: Anteverted, Enlarged, Firm Adnexa: Not Palpable: Left, Right Breast(s): Yes: WNL Musculoskeletal: Yes: WNL Extremities: Yes: WNL Edema: No Integumentary: Yes: WNL Neurological: Yes: WNL, Alert, Oriented ...Motor Strength: WNL Psychiatric: Yes: WNL, Alert, Oriented Labs: CBC, BMP 06/05/19 16:11 06/05/19 16:11 Imaging - Results Ultrasound: Report Reviewed Problem List - Problem (1) Excessive and frequent menstruation with irregular cycle Assessment/Plan: Pt with heavy vaginal bleeding due to fibroids in setting of complex endometrial hyperplasia and fibroids. Did not respond well to D&C and poor response to Provera 10mg daily. I would prefers not to use IV estrogen due to complex endometrial hyperplasia. Plan trial of high-dose of Provera. If that does not work, will try Lysteda. Risks, benefits, and alternatives of Provera at high doses were explained Code(s): N92.1 - EXCESSIVE AND FREQUENT MENSTRUATION WITH IRREGULAR CYCLE (2) Complex endometrial hyperplasia with atypia Assessment/Plan: I discussed the pathology with the pt and advised that she will likely need a hysterectomy. I explained that a more conservative option is not preferred due to risk of endometrial cancer and apparent increase in size of fibroids in the last 2 years. Code(s): N85.02 - ENDOMETRIAL INTRAEPITHELIAL NEOPLASIA [EIN] (3) Anemia Assessment/Plan: Plan to transfuse 2-3 units of PRBC. Risks, benefits, and alternatives of blood transfusion were explained Code(s): D64.9 - ANEMIA, UNSPECIFIED Qualifiers: Iron deficiency anemia type: chronic blood loss Qualified Code(s): D64.9 - Anemia, unspecified (4) Uterine fibroid Code(s): D25.9 - LEIOMYOMA OF UTERUS, UNSPECIFIED Qualifiers: Uterine leiomyoma location: unspecified location Qualified Code(s): D25.9 - Leiomyoma of uterus, unspecified
[2019-06-05] MEDS ORDERED: PT OWN MED DRAWER 7, Y5N ONE (22:10)
[2019-06-05 22:22] VITALS: BMI 35.6
[2019-06-05] MEDS: SODIUM CHLORIDE 1,000 ML IV SCH (22:50)
[2019-06-06] MEDS ORDERED: PT OWN MED DRAWER 7, Y5N ONE ×3 (00:32→22:31)
[2019-06-06] MEDS ORDERED: ACETAMINOPHEN 325 MG TABLET (FP) PO PRN (02:41)
[2019-06-06 08:11] LABS: BASO % 0.5 % (0-2.0); EOS % 0.8 % (0-4.5); HEMATOCRIT 27.8 % (32.4-45.2); HEMOGLOBIN 9.1 GM/dL (10.7-15.3); LYMPH % 15.1 % (8-40); MCH 25.3 pg (25.7-33.7); MCHC 32.6 g/dl (32.0-36.0); MEAN CELL VOLUME 77.4 fl (80-96); MEAN PLT VOLUME 8.5 fl (7.5-11.1); MONO % 5.9 % (3.8-10.2); NEUT % 77.7 % (42.8-82.8); PLATELET COUNT 292 K/MM3 (134-434); RBC 3.59 M/mm3 (3.60-5.2); RDW 24.4 % (11.6-15.6); WHITE BLOOD COUNT 10.1 K/mm3 (4.0-10.0)
[2019-06-06 08:32] LABS: BLOOD UREA NITROGEN 9.1 mg/dL (7-18); CALCIUM 8.2 mg/dL (8.5-10.1); CREATININE 0.5 mg/dL (0.55-1.3); POTASSIUM 4.2 mmol/L (3.5-5.1)
--- NOTE | 2019-06-06 12:10 | PN ---
Progress Note (SOAP) - Subjective Chief Complaint: No complaints. Pt states bleeding is less. History of Present Illness: Menorrhagia with anemia in setting of fibroids and complex endometrial hyperplasia. Path also detected acute and chronic endometritis. - Current Medications Current Medications: Active Medications Acetaminophen (Tylenol -) 650 mg PO Q6H PRN PRN Reason: PAIN LEVEL 7 - 10 Last Admin: 06/06/19 02:46 Dose: 650 mg Sodium Chloride (Normal Saline -) 1,000 mls @ 125 mls/hr IV ASDIR [facility] Last Admin: 06/05/19 22:50 Dose: 125 mls/hr Ibuprofen (Advil -) 200 mg PO Q6H PRN PRN Reason: PAIN LEVEL 4 - 6 Last Admin: 06/06/19 01:22 Dose: 200 mg Medroxyprogesterone Acetate (Provera -) 10 mg PO BID [facility] Last Admin: 06/06/19 10:06 Dose: 10 mg - Objective Vital Signs: Vital Signs Temperature 97.8 F 06/06/19 08:14 Pulse Rate 98 H 06/06/19 08:14 Respiratory Rate 16 06/06/19 08:14 Blood Pressure 119/70 06/06/19 08:14 O2 Sat by Pulse Oximetry (%) 99 06/06/19 06:00 Constitutional: Yes: Well Nourished, No Distress, Calm Eyes: Yes: WNL, Conjunctiva Clear, EOM Intact HENT: Yes: WNL, Atraumatic, Normocephalic Neck: Yes: WNL, Supple, Trachea Midline Cardiovascular: Yes: WNL, Regular Rate and Rhythm Respiratory: Yes: WNL, Regular, CTA Bilaterally Gastrointestinal: Yes: WNL, Normal Bowel Sounds ...Rectal Exam: Yes: Deferred Genitourinary: Yes: Vaginal Discharge (less) Musculoskeletal: Yes: WNL Extremities: Yes: WNL Peripheral Pulses WNL: Yes Edema: No Integumentary: Yes: WNL Neurological: Yes: WNL, Alert, Oriented ...Motor Strength: Yes: WNL Psychiatric: Yes: WNL Labs Lab Results: CBC, BMP 06/06/19 07:22 06/06/19 07:22 Problem List - Problems (1) Excessive and frequent menstruation with irregular cycle Assessment/Plan: Bleeding improved. Plan to continue Provera BID. Problems reviewed: Yes Code(s): N92.1 - EXCESSIVE AND FREQUENT MENSTRUATION WITH IRREGULAR CYCLE (2) Complex endometrial hyperplasia with atypia Problems reviewed: Yes Code(s): N85.02 - ENDOMETRIAL INTRAEPITHELIAL NEOPLASIA [EIN] (3) Anemia Assessment/Plan: Hct increased as expected. Plan to complete 3rd unit of PRBC and check CBC tomorrow. Problems reviewed: Yes Code(s): D64.9 - ANEMIA, UNSPECIFIED Qualifiers: Iron deficiency anemia type: chronic blood loss Qualified Code(s): D64.9 - Anemia, unspecified (4) Uterine fibroid Assessment/Plan: Pt is interested in hysterectomy. She has a follow up visit in office scheduled for this Saturday. I spoke to Dr. Bee and plan to schedule hysterectomy as outpt. Code(s): D25.9 - LEIOMYOMA OF UTERUS, UNSPECIFIED Qualifiers: Uterine leiomyoma location: unspecified location Qualified Code(s): D25.9 - Leiomyoma of uterus, unspecified (5) Endometritis Assessment/Plan: Path from D&C noted acute and chronic endometritis. This may be an inflammatory response due to bleeding and fibroids. However, infectious process cannot be ruled out. WBC was normal last night and slightly elevated after PRBC was given. Plan to Tx with Abx as pt will have surgery in near future. Problems reviewed: Yes Code(s): N71.9 - INFLAMMATORY DISEASE OF UTERUS, UNSPECIFIED
--- NOTE | 2019-06-06 14:47 | EKG ---
Test Reason : Blood Pressure : / mmHG Vent. Rate : 092 BPM Atrial Rate : 092 BPM P-R Int : 154 ms QRS Dur : 072 ms QT Int : 342 ms P-R-T Axes : 035 048 033 degrees QTc Int : 422 ms NORMAL SINUS RHYTHM NORMAL ECG WHEN COMPARED WITH ECG OF 01-JUN-2019 14:24, NO SIGNIFICANT CHANGE WAS FOUND Confirmed by DIMA GO MD ([id number]) on 06/06/2019 2:46:35 PM Referred By: Confirmed By:DIMA GO MD
--- NOTE | 2019-06-06 16:21 | PN ---
Progress Note (short form) - Note Progress Note: Medical notes pt was admitted for Menorrhagia with anemia she is comfortable and still have bleeding no dizziness no fever or chills vs Vital Signs Period Temp Pulse Resp BP Sys/Ingram Pulse Ox Last 24 Hr 97.8 F-98.8 F 73-100 - 97-130/60-80 99-100 Heent nad neck supple lungs clear heart normal abd soft and non tender bs normal ext no edema CBC, BMP 06/06/19 07:22 06/06/19 07:22 A/p Menorrhagia with anemia will f/u on hemolgobin and plan as per earth observations chief scientist . Current Medications Acetaminophen (Tylenol -) 650 mg PO Q6H PRN PRN Reason: PAIN LEVEL 7 - 10 Last Admin: 06/06/19 02:46 Dose: 650 mg Doxycycline Hyclate (Vibramycin -) 100 mg PO BID@1000,1800 МАРИНА Sodium Chloride (Normal Saline -) 1,000 mls @ 125 mls/hr IV ASDIR [facility] Last Admin: 06/05/19 22:50 Dose: 125 mls/hr Ibuprofen (Advil -) 200 mg PO Q6H PRN PRN Reason: PAIN LEVEL 4 - 6 Last Admin: 06/06/19 01:22 Dose: 200 mg Medroxyprogesterone Acetate (Provera -) 10 mg PO BID [facility] Last Admin: 06/06/19 10:06 Dose: 10 mg
[2019-06-06] MEDS: DOXYCYCLINE HYCLATE 100 MG CAPSULE PO SCH (17:15)
[2019-06-06] MEDS: SODIUM CHLORIDE 1,000 ML IV SCH (18:39)
[2019-06-07] MEDS: SODIUM CHLORIDE 1,000 ML IV SCH ×2 (03:00→13:53)
[2019-06-07 08:17] LABS: BASO % 0.6 % (0-2.0); EOS % 4.6 % (0-4.5); HEMATOCRIT 29.1 % (32.4-45.2); HEMOGLOBIN 9.3 GM/dL (10.7-15.3); MCH 25.5 pg (25.7-33.7); MEAN CELL VOLUME 79.7 fl (80-96); MEAN PLT VOLUME 8.7 fl (7.5-11.1); MONO % 7.9 % (3.8-10.2); NEUT % 57.9 % (42.8-82.8); PLATELET COUNT 260 K/MM3 (134-434); RBC 3.65 M/mm3 (3.60-5.2); RDW 23.4 % (11.6-15.6); WHITE BLOOD COUNT 7.1 K/mm3 (4.0-10.0)
[2019-06-07] MEDS ORDERED: PT OWN MED DRAWER 7, Y5N ONE (09:30)
[2019-06-07] MEDS: DOXYCYCLINE HYCLATE 100 MG CAPSULE PO SCH ×2 (09:31→17:12)
--- NOTE | 2019-06-07 16:07 | PN ---
Progress Note (short form) - Note Progress Note: Medical notes pt was admitted for Menorrhagia with anemia she is comfortable and her hemoglobin is stable no dizziness no fever or chills vs Vital Signs Vital Signs Period Temp Pulse Resp BP Sys/Ingram Pulse Ox Last 24 Hr 97.6 F-98.7 F 76-83 14-20 100-146/51-80 99-99 looks comfortable neck supple lungs clear heart normal abd soft and non tender bs normal ext no edema CBC, BMP 06/07/19 07:09 06/06/19 07:22 Menorrhagia with anemia will f/u on hemoglobin and plan as per human anatomy teacher she may needs hysterectomy . Current Medications Acetaminophen (Tylenol -) 650 mg PO Q6H PRN PRN Reason: PAIN LEVEL 7 - 10 Last Admin: 06/06/19 02:46 Dose: 650 mg Doxycycline Hyclate (Vibramycin -) 100 mg PO BID@1000,1800 МАРИНА Sodium Chloride (Normal Saline -) 1,000 mls @ 125 mls/hr IV ASDIR [facility] Last Admin: 06/05/19 22:50 Dose: 125 mls/hr Ibuprofen (Advil -) 200 mg PO Q6H PRN PRN Reason: PAIN LEVEL 4 - 6 Last Admin: 06/06/19 01:22 Dose: 200 mg Medroxyprogesterone Acetate (Provera -) 10 mg PO BID [facility] Last Admin: 06/06/19 10:06 Dose: 10 mg
--- NOTE | 2019-06-07 20:28 | PN ---
Progress Note (SOAP) - Subjective Chief Complaint: HD #3. No complaints. Pt states bleeding is significantly less. History of Present Illness: Menorrhagia with anemia in setting of fibroids and complex endometrial hyperplasia. Path also detected acute and chronic endometritis. Pt has had Abx and 3u PRBC to date. - Current Medications Current Medications: Active Medications Acetaminophen (Tylenol -) 650 mg PO Q6H PRN PRN Reason: PAIN LEVEL 7 - 10 Last Admin: 06/06/19 02:46 Dose: 650 mg Doxycycline Hyclate (Vibramycin -) 100 mg PO BID@1000,1800 [facility] Last Admin: 06/07/19 17:12 Dose: 100 mg Sodium Chloride (Normal Saline -) 1,000 mls @ 125 mls/hr IV ASDIR [facility] Last Admin: 06/07/19 13:53 Dose: 125 mls/hr Ibuprofen (Advil -) 200 mg PO Q6H PRN PRN Reason: PAIN LEVEL 4 - 6 Last Admin: 06/06/19 01:22 Dose: 200 mg Medroxyprogesterone Acetate (Provera -) 10 mg PO BID [facility] Last Admin: 06/07/19 09:31 Dose: 10 mg - Objective Vital Signs: Vital Signs Temperature 98.7 F 06/07/19 14:04 Pulse Rate 83 06/07/19 14:04 Respiratory Rate 14 06/07/19 08:21 Blood Pressure 118/51 L 06/07/19 14:04 O2 Sat by Pulse Oximetry (%) 99 06/07/19 09:00 Constitutional: Yes: Well Nourished, No Distress, Calm Eyes: Yes: WNL, Conjunctiva Clear, EOM Intact HENT: Yes: WNL, Atraumatic, Normocephalic Neck: Yes: WNL, Supple, Trachea Midline Cardiovascular: Yes: WNL, Regular Rate and Rhythm Respiratory: Yes: WNL, Regular, CTA Bilaterally Gastrointestinal: Yes: WNL, Normal Bowel Sounds, Soft, Abdomen, Obese Genitourinary: Yes: WNL, Vaginal Bleeding (scant) Musculoskeletal: Yes: WNL Extremities: Yes: WNL Peripheral Pulses WNL: Yes Edema: No Integumentary: Yes: WNL Neurological: Yes: WNL, Alert, Oriented ...Motor Strength: Yes: WNL Psychiatric: Yes: WNL, Alert, Oriented Labs Lab Results: CBC, BMP 06/07/19 07:09 06/06/19 07:22 Problem List - Problems (1) Excessive and frequent menstruation with irregular cycle Assessment/Plan: Bleeding much improved and is now scant. Plan to continue Provera BID. I discussed the case with patient and Dr. Bee, patient's primary DEVELOPMENT SCIENTIST, and the plan is to proceed with hysterectomy. The patient is clinically stable for discharge. However, she was offered an option to remain in-patient and be scheduled for hysterectomy on 06/09/19 or to go home and f/u in the office tomorrow for scheduling as an outpatient. The pt prefers to go home and f/u in office tomorrow. Problems reviewed: Yes Code(s): N92.1 - EXCESSIVE AND FREQUENT MENSTRUATION WITH IRREGULAR CYCLE (2) Complex endometrial hyperplasia with atypia Assessment/Plan: I discussed the pathology with the pt and she requested hysterectomy. Problems reviewed: Yes Code(s): N85.02 - ENDOMETRIAL INTRAEPITHELIAL NEOPLASIA [EIN] (3) Anemia Assessment/Plan: Hct increased after 3u PRBC. Bleeding has decreased to scant. Plan to d/c to home on oral Fe and Provera. Advised multivitamins. Problems reviewed: Yes Code(s): D64.9 - ANEMIA, UNSPECIFIED Qualifiers: Iron deficiency anemia type: chronic blood loss Qualified Code(s): D64.9 - Anemia, unspecified (4) Uterine fibroid Assessment/Plan: Pt is interested in hysterectomy. She has a follow up visit in office scheduled for this Saturday. I spoke to Dr. Bee and plan to schedule hysterectomy as outpt. Code(s): D25.9 - LEIOMYOMA OF UTERUS, UNSPECIFIED Qualifiers: Uterine leiomyoma location: unspecified location Qualified Code(s): D25.9 - Leiomyoma of uterus, unspecified (5) Endometritis Problems reviewed: Yes Code(s): N71.9 - INFLAMMATORY DISEASE OF UTERUS, UNSPECIFIED
[2019-06-07 21:15] VITALS: BP 135/62; PULSE 95; TEMP 98.4
== END 2019-06-07 21:25 | disposition home or self-care (01) | DRG 812 ==
LOC: JER 15:31 → JERBED 18:40 → J6S 21:38
PROVIDERS: ADMIT Obstetrics & Gynecology; ATTEND Obstetrics & Gynecology
PROC: 30233N1 Transfusion of Nonautologous Red Blood Cells into Peripheral Vein, Percutaneous Approach (ICD-10-PCS; principal; 2019-06-05)
DX: D64.9 Anemia, unspecified (principal); D25.9 Leiomyoma of uterus, unspecified; N85.02 Endometrial intraepithelial neoplasia [EIN]; N93.9 Abnormal uterine and vaginal bleeding, unspecified; E66.9 Obesity, unspecified; N92.1 Excessive and frequent menstruation with irregular cycle; N85.01 Benign endometrial hyperplasia; Z68.35 Body mass index [BMI] 35.0-35.9, adult
CPT/HCPCS: 36415; 36430; 36511; 80048; 80053; 81003; 83735; 84100; 85025; 86850; 86900; 86901; 86922; 87086; 93005; 93010; 99283-25; J7030; P9038; P9058

== ENCOUNTER 2019-06-09 08:57 | Inpatient (IN) | payer OTHER ==
[2019-06-08 15:52] VITALS: BMI 34.7
--- NOTE | 2019-06-09 09:44 | HP ---
History & Physical Update - Physical Physical: No Change - Assessment Assessment: No Change - Plan Plan: No Change (H&P reviwed , no changes , for PEDRO, possible BSO)
[2019-06-09] MEDS ORDERED: DEXAMETHASONE SOD PHOSPHATE/PF 10 MG/ML SDV ONE (10:04)
[2019-06-09] MEDS ORDERED: BUPIVACAINE HCL/PF 0.5% (5 MG/ML) 30 ML VIAL IJ ONE (10:04)
[2019-06-09] MEDS ORDERED: MIDAZOLAM HCL 2 MG/2 ML SINGLE DOSE VIAL ONE ×2 (10:23)
[2019-06-09] MEDS ORDERED: fentaNYL CITRATE 250 MCG/5 ML VIAL ONE (10:39)
[2019-06-09] MEDS ORDERED: PROPOFOL 20 ML ONE (10:39)
[2019-06-09] MEDS ORDERED: LIDOCAINE HCL/PF 2% SDV 5ML VIAL ONE (10:40)
[2019-06-09] MEDS ORDERED: ONDANSETRON 4 MG/2 ML VIAL ONE (10:40)
[2019-06-09] MEDS ORDERED: DEXAMETHASONE SOD PHOSPHATE 4 MG/1 ML VIAL ONE (10:40)
[2019-06-09] MEDS ORDERED: DESFLURANE GAS 240 ML BOTTLE IH ONE (10:42)
[2019-06-09] MEDS ORDERED: ceFAZolin 2 GRAM PREMIX BAG IVPB ONE (11:05)
[2019-06-09] MEDS ORDERED: ceFAZolin SODIUM 1 GM VIAL ONE ×2 (11:18→13:05)
[2019-06-09] MEDS ORDERED: ONDANSETRON 4 MG/2 ML VIAL IVPUSH PRN ×2 (12:21→13:54)
[2019-06-09] MEDS ORDERED: ROCURONIUM BROMIDE 50 MG/5 ML SYRINGE ONE (13:07)
[2019-06-09] MEDS ORDERED: GLYCOPYRROLATE 0.2 MG/1 ML VIAL ONE (13:53)
[2019-06-09] MEDS ORDERED: NEOSTIGMINE METHYLSULFATE 0.5 MG/1 ML - 10 ML MDV ONE (13:53)
[2019-06-09] MEDS ORDERED: IBUPROFEN 600 MG TABLET (FP) PO PRN (13:54)
[2019-06-09] MEDS ORDERED: IBUPROFEN 800 MG/8 ML IJ IVPB PRN (13:54)
[2019-06-09] MEDS ORDERED: oxyCODONE HCL 5 MG TABLET PO PRN (13:54)
[2019-06-09] MEDS ORDERED: ACETAMINOPHEN 325 MG TABLET (FP) PO PRN (14:00)
[2019-06-09] MEDS ORDERED: HYDROmorphone *PCA* 10MG/50ML DISP.SYRIN PCA SCH (14:00)
--- NOTE | 2019-06-09 14:02 | OP ---
Operative Note - Note: Operative Date: 06/09/19 Pre-Operative Diagnosis: menometrorrhagia, EM hyperplasia with atypia, adenomyosis , anemia Operation: pelvic washing,exploratory lap. lysis of pelvic and bowel , bladder adhesios, hysterectomy, bilatearl salpingectomy Findings: dense pelvic adhesions bowel and bladder adhesions, bilateral hydrosalpinx, enlarged uterus, adenomyosis Surgeon: Phill Bee [employer] Member: Francisco Mcdaniel Anesthesia: General Specimens Removed: uterus,, cervix, both tubes Estimated Blood Loss (mls): 500 Drains & Tubes with Location: price Drains, Volume Out (mls): 450 Blood Volume Replaced (mls): 1 Fluid Volume Replaced (mls): 1,500 Operative Report Dictated: Yes
[2019-06-09] MEDS ORDERED: BENZOIN TINCTURE SWABSTICK TP ONE (14:12)
--- NOTE | 2019-06-09 14:39 | PN ---
Progress Note (short form) - Note Progress Note: I assisted Dr. Bee at [facility], BS, [facility] for the entirety of the case.
[2019-06-09] MEDS ORDERED: HYDROmorphone *PCA* 10MG/50ML DISP.SYRIN ONE (14:52)
[2019-06-09 15:56] LABS: BASO % 0.7 % (0-2.0); HEMATOCRIT 34.2 % (32.4-45.2); HEMOGLOBIN 10.6 GM/dL (10.7-15.3); LYMPH % 6.9 % (8-40); MCH 25.1 pg (25.7-33.7); MCHC 30.9 g/dl (32.0-36.0); MEAN CELL VOLUME 81.1 fl (80-96); MEAN PLT VOLUME 9.1 fl (7.5-11.1); MONO % 1.6 % (3.8-10.2); NEUT % 90.8 % (42.8-82.8); PLATELET COUNT 304 K/MM3 (134-434); RBC 4.22 M/mm3 (3.60-5.2); RDW 21.6 % (11.6-15.6); WHITE BLOOD COUNT 20.9 K/mm3 (4.0-10.0)
[2019-06-09] MEDS: ELECTROLYTE-148 SOLN 1,000 ML IV SCH (17:00)
[2019-06-09 18:20] LABS: PLATELET ESTIMATE NORMAL
[2019-06-09 18:29] LABS: ANISOCYTOSIS 2+; OVALOCYTE 1+
[2019-06-09] MEDS: CEFAZOLIN 1 GM/D5W 1 GM/50 ML BAG IVPB SCH (18:59)
[2019-06-09] MEDS ORDERED: CEFAZOLIN 1 GM in DEXTROSE 5%-WATER - 50 ML IVPB SCH (19:00)
[2019-06-10] MEDS: CEFAZOLIN 1 GM/D5W 1 GM/50 ML BAG IVPB SCH (03:08)
[2019-06-10] MEDS ORDERED: BISACODYL 10 MG SUPP.RECT RC PRN (07:15)
[2019-06-10 08:09] LABS: HEMATOCRIT 28.6 % (32.4-45.2); HEMOGLOBIN 9.3 GM/dL (10.7-15.3); MCH 25.6 pg (25.7-33.7); MCHC 32.5 g/dl (32.0-36.0); MEAN CELL VOLUME 78.8 fl (80-96); MEAN PLT VOLUME 8.8 fl (7.5-11.1); PLATELET COUNT 273 K/MM3 (134-434); RBC 3.63 M/mm3 (3.60-5.2); RDW 22.3 % (11.6-15.6)
[2019-06-10 08:25] LABS: CALCIUM 8.3 mg/dL (8.5-10.1); CREATININE 0.5 mg/dL (0.55-1.3); POTASSIUM 4.2 mmol/L (3.5-5.1)
--- NOTE | 2019-06-10 09:08 | PN ---
Progress Note (short form) - Note Progress Note: 43F POD#1 for PEDRO/Lysis of pelvic adhesions under GA. No anesthesia related complications. Pain adequately controlled this am with IV SENIOR ESTIMATOR. Pt. awake and alert - no evidence of resp depression or increased sedation. Recommend cont IV SENIOR ESTIMATOR and continue management per primary team.
[2019-06-10] MEDS: ENOXAPARIN NA (PORCINE) 40 MG/0.4 ML DISP.SYRIN SQ SCH (09:30)
[2019-06-10] MEDS: LACTATED RINGERS SOLUTION 1,000 ML IV SCH ×2 (11:00→14:16)
--- NOTE | 2019-06-10 12:04 | PN ---
Progress Note (short form) - Note Progress Note: pod 1, s/p PEDRO, doing well, has been out of bed ,voids ok, no vaginal bleeding, has pain at site of incision CBC, BMP 06/10/19 06:41 06/10/19 06:41 Last Vital Signs Temp Pulse Resp BP Pulse Ox 98.2 F 102 H 20 126/81 99 06/10/19 10:00 06/10/19 10:00 06/10/19 10:00 06/10/19 10:00 06/10/19 01:01 abdomen soft, no distension, no cva , decreased BS incision dry, clean no vaginal discharge no calf tenderness impression post op day 1 , doing well, afebrile plan ambulate, advance diet pain management
[2019-06-10] MEDS: SIMETHICONE 80 MG TAB.CHEW (FP) PO PRN (13:29)
[2019-06-10] MEDS: ELECTROLYTE-148 SOLN 1,000 ML IV SCH (14:16)
[2019-06-10] MEDS ORDERED: PCA PUMP KEY 1 EACH EACH ONE (15:30)
[2019-06-10] MEDS ORDERED: PT OWN MED DRAWER 7, Y5N ONE (20:47)
[2019-06-10] MEDS: oxyCODONE HCL 5 MG TABLET PO PRN (20:49)
[2019-06-10] MEDS: SENNOSIDES/DOCUSATE COMBO (SENNA PLUS) TABLET (UD) PO PRN (22:25)
[2019-06-11] MEDS: oxyCODONE HCL 5 MG TABLET PO PRN ×2 (11:06→21:15)
[2019-06-11] MEDS: SIMETHICONE 80 MG TAB.CHEW (FP) PO PRN (11:17)
[2019-06-11] MEDS: ENOXAPARIN NA (PORCINE) 40 MG/0.4 ML DISP.SYRIN SQ SCH (11:39)
--- NOTE | 2019-06-11 14:20 | PN ---
Progress Note (short form) - Note Progress Note: s/p PEDRO, c/o of pelvic low abdominal pain, score 8 , voids ok, no BM ,has gas pain CBC, BMP 06/10/19 06:41 06/10/19 06:41 Last Vital Signs Temp Pulse Resp BP Pulse Ox 97.7 F 77 20 95/60 97 06/11/19 09:00 06/11/19 09:00 06/11/19 09:00 06/11/19 09:00 06/11/19 09:00 abdomen soft, mild distension, no rebound or guarding BS are hypoactive incision dry, clean no calf tenderness no vaginal bleeding impression r/o post op illeous plan ambulate , stool softener dulcolax suppository, revaluate cbc. bmp
[2019-06-11] MEDS: SENNOSIDES/DOCUSATE COMBO (SENNA PLUS) TABLET (UD) PO PRN (21:15)
--- NOTE | 2019-06-11 21:39 | OP ---
DATE OF OPERATION: 06/09/2019 PREOPERATIVE DIAGNOSES: Menometrorrhagia, adenomyosis, anemia, pelvic pain. POSTOPERATIVE DIAGNOSES: Menometrorrhagia, adenomyosis, anemia, pelvic pain, and dense pelvic bowel adhesions. SURGEON: Phill Bee MD ANIMAL WARDEN: Francisco Mcdaniel MD ANESTHESIA: General. ESTIMATED BLOOD LOSS: 500 mL. OPERATIVE REPORT: The patient was taken to the operating room under adequate general anesthesia. Abdomen and perineum were prepped and draped. A Pfannenstiel abdominal skin incision was made over the previous incision. This incision was carried down to the fascia and then fascia was excised with Metzenbaum scissors transversely and then there was difficulty the fascia from the rectus muscles secondary to previous abdominoplasty. These adhesions were lysed with Melo scissors and then peritoneum was entered. Upon entry in the peritoneum, there was a large size uterus noted. There was adhesions of the rectus muscle to the body of the uterus secondary to previous section scarring. The muscles were meticulously and lysed from adhesions with Metzenbaum scissors. Hemostasis was established. Then the rectus muscles were cut in order to enter the abdomen and create more space, because of dense adhesions. Uterus was also adherent with 2 large bands of adhesions on both sides to the pelvic sidewall. Bladder also had adhesions in the lower uterine segment. First the bladder adhesions were lysed with Metzenbaum scissors and bladder was and pushed down. There was an area of bleeding from the anterior wall of the uterus where the bladder was adherent and adhesions were lysed. Hemostasis was established with cautery. Then there were also 2 large bands of adhesions on each side of the uterus. These adhesions were first and the lysed and then repaired. Two Nicky clamps were placed at the adhesion pedicle and then adhesions were cut and then the pedicle was sutured with interrupted suture of 2-0 Vicryl. Uterus was also adherent to the cul-de-sac area and it was impacted and there were some large bowel adhesions between the posterior uterus and cul-de-sac. The bowel was grasped with a bowel grasper, and then with Metzenbaums, the bowel was from the posterior wall of the uterus and then bowels were packed away. Bowels were examined. No defect was seen. Both tubes were adherent to the posterior cul-de-sac and also there was small-bowel adhesion to these areas. Both fallopian tubes appeared to be dilated, consistent with bilateral hydrosalpinx. At this time, the tubes were grasped with [place] clamps and then the adhesions were lysed with Metzenbaum scissors and the tubes were freed from the cul-de-sac and the bowel. Then the tubes were removed with LigaSure cautery along the mesosalpinx and then the tubes were removed separately. Then uterus was enlarged and was grasped with 2 sweetheart clamps and then the adhesions to the cul-de-sac were lysed and the uterus was freed from the cul-de-sac and brought to the surface. Then both round ligaments were identified bilaterally and then with the bipolar LigaSure cautery, cauterized. The round ligaments were cauterized and cut. Then the bladder was further pushed down. Then uteroovarian ligament was grasped and then a hole was made into the broad ligament and a Nicky clamp was applied and the uteroovarian ligament was cut from the uterus and then the pedicle was first tied and then with LigaSure suture of 2-0 Vicryl was placed. At this time, bladder was further pushed down. Uterine artery was identified bilaterally, clamped and cut, and the clamp replaced with 0 Vicryl suture bilaterally. Then paracervical area was clamped with Nicky clamp and cut and the clamp replaced with 0 Vicryl suture. There was a long cervix, and with the Nicky clamp along the paracervical area, was grasped and cut and the clamp replaced with Vicryl suture bilaterally until cervicovaginal junction was reached. At this time, the vagina was entered and the specimen was removed with scissors. After the specimen was removed, both vaginal cuff area was grasped with a Melany clamp and then, with interrupted suture of 0 Vicryl, cuff was closed. There was a small amount of bleeding from the feeding artery to the paracervical area, which was clamped with right-angle clamped and a 3-0 Vicryl suture was placed and hemostasis was established. At this time, the ureters were explored manually and there was no evidence of hydroureter. Then the pelvic cavity was several times irrigated and there was some area of oozing underneath both ovarian pedicles, which was cauterized and hemostasis was established. Then the pelvic cavity again irrigated. Bowels were again examined and no defect in the large bowel, and then all the lap pad, sponge and instrument count were correct. Peritoneum was closed with 0 Vicryl continuous suture. The muscles were brought together with interrupted suture of 0 Vicryl and the defect was repaired. Then fascia was closed with 0 Vicryl continuous suture, subcutaneous fat with interrupted suture of 0 Vicryl, and then with 3-0 Vicryl, and the skin was closed with 3-0 Vicryl subcuticular continuous suture. Patient tolerated procedure well, left the OR in good condition. Jaleesa [id number]
[2019-06-12 07:44] VITALS: BP 91/56; PULSE 89; TEMP 98.8
[2019-06-12] MEDS ORDERED: MAGNESIUM HYDROX 2400MG/30ML ORAL SUSPENSION 30 ML CUP PO ONE (08:09)
--- NOTE | 2019-06-12 08:12 | DS ---
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: Vital Signs Temperature 98.8 F 06/12/19 07:00 Pulse Rate 89 06/12/19 07:00 Respiratory Rate 20 06/12/19 07:00 Blood Pressure 91/56 L 06/12/19 07:00 O2 Sat by Pulse Oximetry (%) 97 06/11/19 21:00 Constitutional: Yes: Well Nourished, No Distress, Calm Eyes: Yes: WNL, Conjunctiva Clear, EOM Intact HENT: Yes: WNL, Atraumatic, Normocephalic Neck: Yes: WNL, Supple, Trachea Midline Cardiovascular: Yes: WNL, Regular Rate and Rhythm Respiratory: Yes: WNL, Regular, CTA Bilaterally Gastrointestinal: Yes: WNL ...Rectal Exam: Yes: WNL Renal/: Yes: WNL Breast(s): Yes: WNL Musculoskeletal: Yes: WNL Extremities: Yes: WNL Integumentary: Yes: WNL Wound/Incision: Yes: Clean/Dry, Well Approximated, Sutures Intact Neurological: Yes: WNL, Alert, Oriented ...Motor Strength: WNL Psychiatric: Yes: WNL, Alert, Oriented Discharge Summary Reason For Visit: IRON DEF ANEMIA/COMPLEX ENDOMET HYPERPLASIA Procedures: Principal: adbdominal hysterectomy, bilateral salpingectomy Other Procedures: Lysis of pelvic and bowel adhesions Health Concerns: no complication Condition: Good - Instructions Diet, Activity, Other Instructions: regular diet, no intercourse,follow up office 2 weeks, if fever, pain, heavy vaginal bleeding call Referrals: Phill Bee MD [Staff Physician] - Disposition: HOME - Home Medications Comprehensive Discharge Medication List: Ambulatory Orders Ferrous Sulfate [Feosol] 325 mg PO TID #90 tablet 06/07/19 Medroxyprogesterone Acetate [Provera] 10 mg PO BID 20 Days #40 tablet 06/07/19 Ibuprofen [Motrin -] 600 mg PO QID #28 tablet 06/11/19 Oxycodone HCl 5 mg PO QID PRN #20 capsule MDD 4 06/11/19
[2019-06-12 08:15] LABS: EOS % 2.9 % (0-4.5); HEMATOCRIT 25.9 % (32.4-45.2); HEMOGLOBIN 8.5 GM/dL (10.7-15.3); LYMPH % 22.2 % (8-40); MCH 25.8 pg (25.7-33.7); MCHC 32.7 g/dl (32.0-36.0); MEAN PLT VOLUME 8.7 fl (7.5-11.1); MONO % 8.4 % (3.8-10.2); NEUT % 65.5 % (42.8-82.8); PLATELET COUNT 229 K/MM3 (134-434); RBC 3.27 M/mm3 (3.60-5.2); WHITE BLOOD COUNT 5.7 K/mm3 (4.0-10.0)
[2019-06-12 09:22] LABS: BLOOD UREA NITROGEN 8.2 mg/dL (7-18); CALCIUM 7.8 mg/dL (8.5-10.1); CREATININE 0.4 mg/dL (0.55-1.3); POTASSIUM 3.7 mmol/L (3.5-5.1)
[2019-06-12] MEDS: ENOXAPARIN NA (PORCINE) 40 MG/0.4 ML DISP.SYRIN SQ SCH (10:06)
--- NOTE | 2019-06-16 13:34 | PATH ---
Surgical Pathology Report Patient Name: PORTER PABLO [facility]. Rec. #: [id number] /Age/Gender: 1975 (Age: 43) / F Account: [id number] Location: [address] [place] [address] Taken: 06/09/2019 Received: 06/09/2019 Reported: 06/16/2019 Physicians: Phill Bee M.D. Specimen(s) Received A: UTERUS AND CERVIX B: BILATERAL FALLOPIAN TUBES Clinical History Iron deficiency anemia, complex endometrial hyperplasia Final Diagnosis A. UTERUS, CERVIX, ABDOMINAL HYSTERECTOMY: ENDOMETRIOID ADENOCARCINOMA WITH VILLOGLANDULAR FEATURES, FIGO GRADE 1 OF 3, ADMIXED WITH COMPLEX ATYPICAL HYPERPLASIA, MEASURING 3 X 3 X 0.9 CM (GROSS MEASUREMENT). CARCINOMA INVADES 3 MM INTO 42 MM THICK MYOMETRIAL WALL (<50% MYOMETRIAL INVASION). CERVIX IS UNINVOLVED BY CARCINOMA. NO LYMPHOVASCULAR INVASION IDENTIFIED. NO PARAMETRIAL INVOLVEMENT IDENTIFIED. MYOMETRIUM SHOW ADDITIONAL AREAS OF ADENOMYOSIS. AJCC TNM STAGING (8th Edition): pT1a pNx. SEE CASE SUMMARY REPORT. B. FALLOPIAN TUBES, BILATERAL, SALPINGECTOMY: BILATERAL FALLOPIAN TUBES WITH CHRONIC SALPINGITIS AND DENSE ADHESIONS. NO CARCINOMA IDENTIFIED. Comment: Concurrent pelvic washings are negative ([id number] and [id number]). Case seen in intradepartmental review with consensus on diagnosis. Additional studies for Mismatch repair proteins (MMR) are pending and will be reported as an addendum. Findings discussed with Dr. Bee. Comments Endometrial Carcinoma :Surgical Pathology Cancer Case Summary Based on AJCC 8th edition Procedure _X__ Total hysterectomy and bilateral salpingectomy Tumor Size _X__ Size: 3 x 3 x 0.9 cm (gross measurement) Histologic Type _X__ Endometrioid carcinoma with villoglandular features Histologic Grade _X_ FIGO grade 1 Myometrial Invasion _X_ Present Depth of invasion (millimeters): 3 mm Myometrial thickness (millimeters): 42 mm Percentage of myometrial invasion: ~7 % Uterine Serosa Involvement _X_ Not identified Cervical Stromal Involvement _X_ Not identified Other Tissue/Organ Involvement _X_ Not applicable Margins Ectocervical/Vaginal Cuff Margin _X_ Uninvolved by carcinoma Parametrial/Paracervical Margin _X_ Uninvolved by carcinoma Lymphovascular Invasion _X_ Not identified Regional Lymph Nodes _X_ No lymph nodes submitted or found Pathologic Stage Classification (pTNM, AJCC 8th Edition) Primary Tumor (pT) _X_ pT1a: Tumor limited to endometrium or invading less than half of the myometrium Category (pN) _X_ pNX: Regional lymph nodes cannot be assessed Electronically Signed Carmen Christensen M.D. Addendum Reported: 06/18/2019 Addendum Diagnosis Immunohistochemical stains for MisMatch Repair Protein Analysis performed at [facility] in [place], [place] ([id number]) and interpreted at [facility] show the following: RESULTS: HMLH-1 INTACT NUCLEAR EXPRESSION HMSH-2 INTACT NUCLEAR EXPRESSION HMSH-6 INTACT NUCLEAR EXPRESSION PMS2 INTACT NUCLEAR EXPRESSION INTERPRETATION: No loss of nuclear expression of MMR proteins: low probability of microsatellite instability-high (MSI-H) Carmen Christensen M.D. Gross Description A. Received fresh labeled "uterus and cervix," is an 828 g uterus with an attached cervix and no attached adnexa. The specimen measures 16 cm from superior to inferior, 11.5 cm from left to right and 11.5 cm from anterior to posterior. The serosa is gamez-pink and smooth. The attached cervix measures 4.5 cm in length and averages 2.2 cm in diameter. The ectocervix is gamez, smooth and glistening. The endocervix is unremarkable. The endometrial cavity measures 9.5 cm in length and 7 cm from cornu to cornu. There is patchy endometrial thickening at the posterior endometrial cavity, measuring 3 x 3 x 0.9 cm, the remainder of the hemorrhagic endometrium averages 0.3 cm. The myometrium is markedly thickened, firm and trabeculated, focally measuring up to 7 cm in thickness. No myometrial nodules are identified. Liability Claims Manager sections are submitted in 38 cassettes as follows: 1-anterior cervix; 2-posterior cervix; 4-94-zcyifpzx submitted anterior endometrium from superior to inferior (one full thickness section of endomyometrium to serosa in cassettes 9-11; 89-59-uweglcnh submitted posterior endometrium from superior to inferior (one full thickness section of endomyometrium to serosa in cassettes 25-26, area of thickening from cassettes 21-32). Additional cassettes are submitted as follows: 39-left parametrium; 40-right parametrium; 41-anterior lower uterine segment; 42-posterior lower uterine segment. B. Received in formalin labeled "bilateral fallopian tubes," are 2 markedly dilated fallopian tubes measuring 5.0 and 5.5 cm in length. The outer surfaces are gamez-marin with dense adhesions. No fimbria are identified. Sectioning of the shorter fallopian tube reveals a dilated, cystic lumen containing serosanguineous fluid. Sectioning of the longer fallopian tube reveals a dilated lumen containing brown mucinous material. Liability Claims Manager sections are submitted in 5 cassettes as follows: 1-3-shorter tube; 4-5-longer tube. 06/10/2019 [facility]06/10/2019
--- NOTE | 2019-06-16 13:35 | PATH ---
Cytology Non-Gynecological Report Patient Name: PORTER PABLO [facility]. Rec. #: [id number] /Age/Gender: 1975 (Age: 43) / F Account: [id number] Location: [address] [place] [address] Taken: 06/09/2019 Received: 06/09/2019 Reported: 06/16/2019 Physicians: Phill Bee M.D. Specimen(s) Received PELVIC WASHINGS Clinical History Complex atypical hyperplasia Final Diagnosis PELVIC WASHINGS FOR CYTOLOGY: SATISFACTORY FOR EVALUATION. NO MALIGNANT CELLS IDENTIFIED. NUMEROUS RED BLOOD CELLS AND PERIPHERAL BLOOD ELEMENTS PRESENT. NO DEFINITIVE MESOTHELIAL CELLS IDENTIFIED. Comment: See concurrent materials ([id number] and [id number]). Electronically Signed Carmen Christensen M.D. Gross Description Approximately 60 cc of bloody fluid received fixed in 50% alcohol. One cytofunnel prepared and Pap stained. One cellblock prepared.
--- NOTE | 2019-06-16 13:37 | PATH ---
Cytology Non-Gynecological Report Patient Name: PORTER PABLO [facility]. Rec. #: [id number] /Age/Gender: 1975 (Age: 43) / F Account: [id number] Location: [address] [place] [address] Taken: 06/09/2019 Received: 06/09/2019 Reported: 06/16/2019 Physicians: Phill Bee M.D. Specimen(s) Received PELVIC WASHINGS Clinical History Complex atypical hyperplasia Final Diagnosis PELVIC WASHINGS FOR CYTOLOGY: SATISFACTORY FOR EVALUATION. NO MALIGNANT CELLS IDENTIFIED. NUMEROUS RED BLOOD CELLS AND PERIPHERAL BLOOD ELEMENTS PRESENT. NO DEFINITIVE MESOTHELIAL CELLS IDENTIFIED. Comment: See concurrent materials ([id number] and [id number]). Electronically Signed Carmen Christensen M.D. Gross Description Approximately 30 cc of bloody fluid received fresh. One cytofunnel prepared and Pap stained. One cellblock prepared.
== END 2019-06-12 10:05 | disposition home or self-care (01) | DRG 743 ==
LOC: JSAMEDAYSX 08:57 → J3W 17:34 → J5S 06-10 14:53
PROVIDERS: ADMIT Obstetrics & Gynecology; ATTEND Obstetrics & Gynecology
PROC: 0UB70ZZ Excision of Bilateral Fallopian Tubes, Open Approach (ICD-10-PCS; 2019-06-09)
PROC: 0DNW0ZZ Release Peritoneum, Open Approach (ICD-10-PCS; 2019-06-09)
PROC: 0TNB0ZZ Release Bladder, Open Approach (ICD-10-PCS; 2019-06-09)
PROC: 0UT90ZZ Resection of Uterus, Open Approach (ICD-10-PCS; principal; 2019-06-09 10:30)
DX: N80.0 Endometriosis of uterus (principal); N92.1 Excessive and frequent menstruation with irregular cycle; N73.6 Female pelvic peritoneal adhesions (postinfective); N70.11 Chronic salpingitis; D50.9 Iron deficiency anemia, unspecified; N32.89 Other specified disorders of bladder
CPT/HCPCS: 36415; 36430; 36511; 80048; 84703; 85025; 85027; 86850; 86900; 86901; 86922; 88108; 88302-TC; 88305-TC; 88309-TC; 94760; P9038; P9058